=== PATIENT | male | born 1945 | race Caucasian/White ===

== ENCOUNTER → 2017-02-11 | Outpatient (CLI) | payer BC ==
[~2017-02-11] MED LIST: ALEN70TA4 PO; ASPEC325 PO; ASPI81TA28 PO; CALC1CAP36 PO; CMD10 PO; CMD75 PO; DLN100 PO; ENOX80IN SQ; FLV1 PO; FOLATE PO; FSM70 PO; METO50TA7 PO; MULT-506 PO; PHEN1TAB85 PO; PHEN1TAB86 PO; PHEN200C PO
[2017-02-11 12:49] LABS: HEMATOCRIT 41.9 % (42-52); MEAN CELL VOLUME 108.8 fL (80-100); MEAN CORPUSCULAR HEMOGLOBIN 36.6 pg (25-34); MEAN CORPUSCULAR HGB CONC 33.7 g/dl (32-36); MEAN PLATELET VOLUME 11.9 fL (7.4-10.4); PLATELET COUNT 170 K/uL (130-400); RED BLOOD COUNT 3.85 M/uL (4.7-6.1); WHITE BLOOD COUNT 3.63 K/uL (4.8-10.8)
[2017-02-11 13:24] LABS: ALT/SGPT 38 U/L (12-78); BLOOD UREA NITROGEN 21 mg/dl (7-18); CARBON DIOXIDE 29 mmol/L (21-32); CHLORIDE 106 mmol/L (98-107); CHOLESTEROL 144 mg/dl (0-200); CREATININE 0.94 mg/dl (0.60-1.40); GLUCOSE 106 mg/dl (70-99); POTASSIUM 4.3 mmol/L (3.5-5.1); SODIUM 142 mmol/L (136-145)
[2017-02-11 13:27] LABS: ALB/GLOB RATIO 1.4 (0.9-2); ALKALINE PHOSPHATASE 149 U/L (45-117); AST/SGOT 38 U/L (15-37); CHOLESTEROL/HDL RATIO 2.3; HDL CHOLESTEROL 62 mg/dl; LDL CHOLESTEROL CALCULATED 68 mg/dl; TRIGLYCERIDES 72 mg/dl (0-150); VERY LOW DENSITY LIPOPROT CALC 14 mg/dl
== END | disposition home or self-care (01) ==
LOC: C.LABPVFM 10:18
PROVIDERS: ATTEND Family Medicine
DX: E55.9 Vitamin D deficiency, unspecified (principal); M81.0 Age-related osteoporosis without current pathological fracture; E29.1 Testicular hypofunction; N52.9 Male erectile dysfunction, unspecified; Z11.59 Encounter for screening for other viral diseases; I48.0 Paroxysmal atrial fibrillation; Z13.220 Encounter for screening for lipoid disorders

== ENCOUNTER → 2017-02-18 | Outpatient (CLI) | payer BC | END | disposition home or self-care (01) | LOC: C.MAMM 13:23 | PROVIDERS: ATTEND Internal Medicine Endocrinology, Diabetes & Metabolism | DX: E55.9 Vitamin D deficiency, unspecified (principal); M81.0 Age-related osteoporosis without current pathological fracture ==

== ENCOUNTER → 2017-03-06 | Outpatient (CLI) | payer BC ==
[2017-03-06 13:09] LABS: TOTAL IRON BINDING CAPACITY 315 mcg/dl (250-450)
--- NOTE | 2017-03-25 14:06 | CODING QUERY MEDICAL NECESSITY ---
CQSUPPORTING DIAGNOSIS NEEDED A supporting diagnosis is required for the test/procedure performed on this patient in order for us to be reimbursed by the patient's insurance. Please provide a supporting diagnosis for the following test/procedure listed below next to the test name along with your signature. *If there is no additional diagnosis for this patient that would support the following test/procedure please document that below next to the test/procedure. Test(s)/Procedure(s) that require a supporting diagnosis: DOS 03/06/17 VITAMIN B12 TEST Provider Signature: Date: Thank you Diann Aguilera Health Information Management Once completed, please kindly fax back to [phone] For questions please call [phone]
== END | disposition home or self-care (01) ==
LOC: C.LABPVFM 10:16
PROVIDERS: ATTEND Family Medicine
DX: R79.89 Other specified abnormal findings of blood chemistry (principal)

== ENCOUNTER → 2017-03-13 | Outpatient (CLI) | payer BC ==
[2017-03-13 16:09] LABS: CALCIUM 9.8 mg/dl (8.5-10.1)
[2017-03-13 16:24] LABS: THYROID STIMULATING HORMONE 2.59 uIu/ml (0.300-4.500)
== END | disposition home or self-care (01) ==
LOC: C.LAB1850 14:14
PROVIDERS: ATTEND Internal Medicine Endocrinology, Diabetes & Metabolism
DX: E55.9 Vitamin D deficiency, unspecified (principal); M81.0 Age-related osteoporosis without current pathological fracture; E34.9 Endocrine disorder, unspecified; E29.1 Testicular hypofunction

== ENCOUNTER 2017-04-02 12:49 | Inpatient (IN) | payer BC, OTHER ==
[~2017-04-02] VITALS: Ht 175.3 cm; Wt 70.4 kg
[~2017-04-02 12:49] MED LIST changes: -ALEN70TA4 PO; -ASPI81TA28 PO; -CALC1CAP36 PO; -ENOX80IN SQ; -FLV1 PO; -MULT-506 PO; -PHEN200C PO
[2017-04-02 13:02] VITALS: Ht 175.3 cm; Wt 70.4 kg
--- NOTE | 2017-04-02 14:33 | EMERGENCY ROOM VISIT NOTE ---
History First contact with patient: 13:56 Chief Complaint: GI ASSESSMENT Stated Complaint: BLOODY STOOL, SENT BY OFFICE Nursing Triage Summary: triage gabriela: pt reports colonscopy on saturday. pt has had dark colored bm and diarrhea since. History of Present Illness The patient is a 71 year old male who presents to the Emergency Room via private vehicle coming by family with complaints of "bloody stool, sent by doctor's office". The patient states that he had a colonoscopy performed on Saturday by Dr. Arzate. He states that he had 5 or 6 polyps removed. He states that he was doing well up until Saturday, where he felt he had to force his bowel movement and noted blood within the stool. He states that he has had blood in his stool since that time, but most recently there was little blood. He notes the blood is dark red in nature. He states is getting darker and smells very bad. He is currently on Coumadin. He notes that he had a CBC performed earlier today which reveal that his blood counts are dropping. He notes that he called the office and Dr. Arzate recommended he come here. Review of Systems A complete 10-point Review of Systems was discussed with the patient, with pertinent positives and negatives listed in the History of Present Illness. All remaining Review of Systems questions can be considered negative unless otherwise specified. Past Medical/Surgical History Medical Problems: (1) Rectal bleed Family History No pertinent. Social History Smoking Status: Never Smoker Patient lives locally with family. Current/Historical Medications Scheduled Alendronate Sodium (Fosamax), 70 MG PO WK Aspirin (Aspirin Ec), 81 MG PO DAILY Calcitriol (Calcitriol), 1 CAP PO DAILY Enoxaparin (Lovenox), 80 MG SQ Q12H Folic Acid (Folic Acid), 1 TAB PO DAILY Metoprolol Succ (Toprol Xl) (Toprol-Xl), 50 MG PO DAILY Multivitamin (Multivitamin), 1 TAB PO DAILY Phenobarbital (Phenobarbital), 60 MG PO QAM Phenobarbital (Phenobarbital), 30 MG PO DAILY Phenobarbital (Phenobarbital), 60 MG PO QPM Phenytoin Sodium Extended (Phenytek), 100 MG PO QAM Phenytoin Sodium Extended (Phenytek), 200 MG PO DAILY Phenytoin Sodium Extended (Phenytek), 200 MG PO QPM Warfarin Sod (Coumadin), 1 TAB PO 3XWK Warfarin Sod (Coumadin), 1 TAB PO 4XWK Physical Exam Vital Signs Date Time Temp Pulse Resp B/P (MAP) Pulse Ox O2 Delivery O2 Flow Rate FiO2 04/02/17 18:16 69 18 119/65 96 04/02/17 18:00 96 Room Air 04/02/17 16:50 68 18 125/80 98 Room Air 04/02/17 15:13 64 04/02/17 13:02 36.7 81 18 112/73 96 Room Air Physical Exam VITAL SIGNS - Vital signs and nursing notes were reviewed. Stable. GENERAL - 71-year-old male appearing his stated age who is in no acute distress. Communicates well with provider and answers questions appropriately. SKIN - Without rashes. No petechial rashes. HEAD - NC/AT. EYES - PERRL with EOMI bilaterally. Sclera anicteric. Palpebral conjunctiva pink and moist with no injection noted. EARS - No deformities of external structures noted on gross examination bilaterally. NOSE - Midline and without cyanosis. No epistaxis or purulent drainage noted. MOUTH/OROPHARYNX - Without perioral cyanosis. LUNGS - Chest wall symmetric without accessory muscle use, intercostals retractions, or central cyanosis. Normal vesicular breath sounds CTA B/L. No wheezes, rales, or rhonchi appreciated. CARDIAC - RRR with S1/S2. No murmur, rubs, or gallops appreciated. ABDOMEN - Abdominal contour normal without pulsations or visible masses. BS normoactive all four quadrants. No tenderness, palpable masses, hepatosplenomegaly, or ascites noted. RECTAL: After obtaining consent, rectal exam was performed. No external reasons for bleeding. Hemoccult positive. The stool was coffee-ground like and dark brown/black. Medical Decision & Procedures Laboratory Results 04/02/17 14:20 Red Blood Count 3.48, Mean Corpuscular Volume 106.9, Mean Corpuscular Hemoglobin 36.2, Mean Corpuscular Hemoglobin Concent 33.9, Mean Platelet Volume 11.2, Neutrophils (%) (Auto) 68.5, Lymphocytes (%) (Auto) 16.4, Monocytes (%) ( Auto) 11.5, Eosinophils (%) (Auto) 2.0, Basophils (%) (Auto) 1.3, Neutrophils # (Auto) 2.08, Lymphocytes # (Auto) 0.50, Monocytes # (Auto) 0.35, Eosinophils # ( Auto) 0.06, Basophils # (Auto) 0.04 04/02/17 14:20 Test 04/02/17 14:20 White Blood Count 3.04 K/uL (4.8-10.8) Red Blood Count 3.48 M/uL (4.7-6.1) Hemoglobin 12.6 g/dL (14.0-18.0) Hematocrit 37.2 % (42-52) Mean Corpuscular Volume 106.9 fL (80-100) Mean Corpuscular Hemoglobin 36.2 pg (25-34) Mean Corpuscular Hemoglobin Concent 33.9 g/dl (32-36) Platelet Count 155 K/uL (130-400) Mean Platelet Volume 11.2 fL (7.4-10.4) Neutrophils (%) (Auto) 68.5 % Lymphocytes (%) (Auto) 16.4 % Monocytes (%) (Auto) 11.5 % Eosinophils (%) (Auto) 2.0 % Basophils (%) (Auto) 1.3 % Neutrophils # (Auto) 2.08 K/uL (1.4-6.5) Lymphocytes # (Auto) 0.50 K/uL (1.2-3.4) Monocytes # (Auto) 0.35 K/uL (0.11-0.59) Eosinophils # (Auto) 0.06 K/uL (0-0.5) Basophils # (Auto) 0.04 K/uL (0-0.2) RDW Standard Deviation 51.9 fL (36.4-46.3) RDW Coefficient of Variation 13.3 % (11.5-14.5) Immature Granulocyte % (Auto) 0.3 % Immature Granulocyte # (Auto) 0.01 K/uL (0.00-0.02) Prothrombin Time 38.4 SECONDS (9.0-12.0) Prothromb Time International Ratio 3.4 (0.9-1.1) Activated Partial Thromboplast Time 53.6 SECONDS (21.0-31.0) Partial Thromboplastin Ratio 2.1 Anion Gap 7.0 mmol/L (3-11) Est Creatinine Clear Calc Drug Dose 87.2 ml/min Estimated GFR () 105.6 Estimated GFR (Non- 91.1 BUN/Creatinine Ratio 24.7 (10-20) Lactic Acid Level 1.2 mmol/L (0.4-2.0) Calcium Level 8.9 mg/dl (8.5-10.1) Total Bilirubin 0.6 mg/dl (0.2-1) Aspartate Amino Transf (AST/SGOT) 40 U/L (15-37) Alanine Aminotransferase (ALT/SGPT) 42 U/L (12-78) Alkaline Phosphatase 168 U/L (45-117) Total Protein 6.9 gm/dl (6.4-8.2) Albumin 3.8 gm/dl (3.4-5.0) Globulin 3.1 gm/dl (2.5-4.0) Albumin/Globulin Ratio 1.2 (0.9-2) Medical Decision Patient was seen and evaluated as above. He presents to us today with rectal bleeding status post colonoscopy on Saturday. He is also anticoagulated. He was sent here at the recommendation of Dr. Arzate. IV access was initiated, and baseline labs were performed. Call was placed to Dr. Arzate, and we discussed the patient's status. He came to personally evaluate the patient. He recommended watching the patient here overnight in the hospital, have the patient on a clear liquid diet, and hold the Coumadin dose. He recommended evaluating the patient overnight, and if the patient seemed to drop, or he decompensated that he'll be prepped for colonoscopy. I do believe the patient at this time should be brought into the hospital for further evaluation and management. His vital signs are stable upon entry. His hemoglobin is low at 12.6. This has decreased from 14.1 on February 11. INR is 3.4. Metabolic panel does not reveal any emergent liver or kidney process. AST slightly high at 40. Alkaline phosphatase high at 168. I discussed the case with the attending physician, Dr. Estevez Please refer to further valuation and management/ documentation regarding his stay. In evaluation treatment this patient following differential diagnoses were entertained: Pulse bleed status post colonoscopy, hemorrhoid, anal fissure, among others. Impression Primary Impression: Rectal bleed Additional Impression: Anemia Departure Information Dispostion Admitted as an inpatient Condition FAIR Referrals Bree Prado M.D. (PCP) Patient Instructions My [facility] Problem Qualifiers
[2017-04-02] MEDS ORDERED: FLV1 PO (14:49)
[2017-04-02] MEDS ORDERED: CMD75 PO (14:49)
[2017-04-02] MEDS ORDERED: CALC1CAP36 PO (14:49)
[2017-04-02] MEDS ORDERED: ASPI81TA28 PO (14:49)
[2017-04-02] MEDS ORDERED: ENOX80IN SQ (14:49)
[2017-04-02] MEDS ORDERED: ALEN70TA4 PO (14:49)
[2017-04-02] MEDS ORDERED: PHEN200C PO ×3 (14:49)
[2017-04-02] MEDS ORDERED: CMD10 PO (14:49)
[2017-04-02] MEDS ORDERED: MULT-506 PO (14:49)
[2017-04-02 15:08] LABS: BASO % 1.3 %; BASO ABS # 0.04 K/uL (0-0.2); COMPLETE YES; HEMATOCRIT 37.2 % (42-52); IG% 0.3 %; LYMPH % 16.4 %; MEAN CELL VOLUME 106.9 fL (80-100); MEAN CORPUSCULAR HEMOGLOBIN 36.2 pg (25-34); MEAN CORPUSCULAR HGB CONC 33.9 g/dl (32-36); MEAN PLATELET VOLUME 11.2 fL (7.4-10.4); MONO % 11.5 %; NEUT % 68.5 %; PLATELET COUNT 155 K/uL (130-400); RED BLOOD COUNT 3.48 M/uL (4.7-6.1); WHITE BLOOD COUNT 3.04 K/uL (4.8-10.8)
[2017-04-02 15:20] LABS: INR 3.4 (0.9-1.1); PARTIAL THROMBOPLASTIN RATIO 2.1; PROTHROMBIN TIME (PATIENT) 38.4 SECONDS (9.0-12.0)
[2017-04-02 15:21] LABS: BUN/CREATININE RATIO 24.7 (10-20); CALCIUM 8.9 mg/dl (8.5-10.1); CREATININE 0.76 mg/dl (0.60-1.40); POTASSIUM 4.2 mmol/L (3.5-5.1)
[2017-04-02 15:24] LABS: ALB/GLOB RATIO 1.2 (0.9-2)
[2017-04-02] MEDS ORDERED: POLYETHYLENE (MIRALAX) 17 GM PACK PO PRN (17:30)
[2017-04-02] MEDS ORDERED: MAGNESIUM HYDROXIDE SUSP 30 ML UDC PO PRN (17:30)
[2017-04-02] MEDS ORDERED: ONDANSETRON INJ 2 MG/ML 2 ML VIAL IV PRN (17:30)
[2017-04-02] MEDS ORDERED: ALUMINUM/MAGNESIUM/SIMETH (MAALOX MAX) 30 ML UDC PO PRN (17:30)
--- NOTE | 2017-04-02 17:37 | History and Physical ---
History & Physical Date & Time of Service: Apr 02, 2017 at 17:28 Chief Complaint: Bloody Stool, Sent By Dr Office Primary Care Physician: Bree Prado M.D. History of Present Illness Source: patient, clinic records, hospital records Patient is a pleasant 71 y/o male, with PMHx of a.fib, MVR, and seizure disorder , who presented to the ED because of BRBPR since 03/30. Patient had a surveillance colonoscopy by Dr. Arzate on 03/29- multiple polyps were removed. On Saturday, patient noticed bright red blood with bowel movement. He also notes loose stools. He has had 4 episodes since Saturday, his last being today in ED. He notes stool seem darker in color. He is on chronic Coumadin for a.fib/ MVR. Patient denies any fever, chills, sweats, lightheadedness, dizziness, vision changes, CP, palpitations, edema, SOB, wheezing, cough, abdominal pain, nausea, vomiting, diarrhea, urinary symptoms, numbness/tingling, weakness, muscle/joint pain, anxiety/depression, or new skin discoloration/changes. Past Medical/Surgical History Past Medical History: a.fib MVR seizure disorder Surgical History: s/p mitral valve replacement colonoscopy Family History Noncontributory Social History Smoking Status: Never Smoker Smokeless Tobacco Use: No Alcohol Use: none Drug Use: none Marital Status: Housing status: lives with family Immunizations History of Influenza Vaccine: Yes History of Tetanus Vaccine?: Yes History of Pneumococcal: Yes History of Hepatitis B Vaccine: Yes Multi-Drug Resistant Organisms History of MDRO: No Allergies Coded Allergies: No Known Allergies (Verified , 04/02/17) Home Medications Scheduled Alendronate Sodium (Fosamax), 70 MG PO WK Aspirin (Aspirin Ec), 81 MG PO DAILY Calcitriol (Calcitriol), 1 CAP PO DAILY Enoxaparin (Lovenox), 80 MG SQ Q12H Folic Acid (Folic Acid), 1 TAB PO DAILY Metoprolol Succ (Toprol Xl) (Toprol-Xl), 50 MG PO DAILY Multivitamin (Multivitamin), 1 TAB PO DAILY Phenobarbital (Phenobarbital), 60 MG PO QAM Phenobarbital (Phenobarbital), 30 MG PO DAILY Phenobarbital (Phenobarbital), 60 MG PO QPM Phenytoin Sodium Extended (Phenytek), 100 MG PO QAM Phenytoin Sodium Extended (Phenytek), 200 MG PO DAILY Phenytoin Sodium Extended (Phenytek), 200 MG PO QPM Warfarin Sod (Coumadin), 1 TAB PO 3XWK Warfarin Sod (Coumadin), 1 TAB PO 4XWK Physical Exam Vital Signs Date Time Temp Pulse Resp B/P (MAP) Pulse Ox O2 Delivery O2 Flow Rate FiO2 04/02/17 16:50 68 18 125/80 98 Room Air 04/02/17 15:13 64 04/02/17 13:02 36.7 81 18 112/73 96 Room Air General Appearance: no apparent distress Head: normocephalic, atraumatic Eyes: PERRL ENT: hearing grossly normal Neck: supple Respiratory/Chest: lungs clear, no respiratory distress, no accessory muscle use Cardiovascular: regular rate, rhythm, + pertinent finding (valve replacement ) Abdomen/GI: normal bowel sounds, non tender, soft Back: normal inspection Extremities/Musculoskelatal: no calf tenderness, no pedal edema Neurologic/Psych: alert, normal mood/affect, oriented x 3 Skin: normal color, warm/dry, no rash Diagnostics Laboratory Results Results Past 24 Hours Test 04/02/17 14:20 Range/Units White Blood Count 3.04 4.8-10.8 K/uL Red Blood Count 3.48 4.7-6.1 M/uL Hemoglobin 12.6 14.0-18.0 g/dL Hematocrit 37.2 42-52 % Mean Corpuscular Volume 106.9 80-100 fL Mean Corpuscular Hemoglobin 36.2 25-34 pg Mean Corpuscular Hemoglobin Concent 33.9 32-36 g/dl Platelet Count 155 130-400 K/uL Mean Platelet Volume 11.2 7.4-10.4 fL Neutrophils (%) (Auto) 68.5 % Lymphocytes (%) (Auto) 16.4 % Monocytes (%) (Auto) 11.5 % Eosinophils (%) (Auto) 2.0 % Basophils (%) (Auto) 1.3 % Neutrophils # (Auto) 2.08 1.4-6.5 K/uL Lymphocytes # (Auto) 0.50 1.2-3.4 K/uL Monocytes # (Auto) 0.35 0.11-0.59 K/uL Eosinophils # (Auto) 0.06 0-0.5 K/uL Basophils # (Auto) 0.04 0-0.2 K/uL RDW Standard Deviation 51.9 36.4-46.3 fL RDW Coefficient of Variation 13.3 11.5-14.5 % Immature Granulocyte % (Auto) 0.3 % Immature Granulocyte # (Auto) 0.01 0.00-0.02 K/uL Prothrombin Time 38.4 9.0-12.0 SECONDS Prothromb Time International Ratio 3.4 0.9-1.1 Activated Partial Thromboplast Time 53.6 21.0-31.0 SECONDS Partial Thromboplastin Ratio 2.1 Sodium Level 140 136-145 mmol/L Potassium Level 4.2 3.5-5.1 mmol/L Chloride Level 106 98-107 mmol/L Carbon Dioxide Level 27 21-32 mmol/L Anion Gap 7.0 3-11 mmol/L Blood Urea Nitrogen 19 7-18 mg/dl Creatinine 0.76 0.60-1.40 mg/dl Est Creatinine Clear Calc Drug Dose 87.2 ml/min Estimated GFR () 105.6 Estimated GFR (Non- 91.1 BUN/Creatinine Ratio 24.7 10-20 Random Glucose 104 70-99 mg/dl Lactic Acid Level 1.2 0.4-2.0 mmol/L Calcium Level 8.9 8.5-10.1 mg/dl Total Bilirubin 0.6 0.2-1 mg/dl Aspartate Amino Transf (AST/SGOT) 40 15-37 U/L Alanine Aminotransferase (ALT/SGPT) 42 12-78 U/L Alkaline Phosphatase 168 45-117 U/L Total Protein 6.9 6.4-8.2 gm/dl Albumin 3.8 3.4-5.0 gm/dl Globulin 3.1 2.5-4.0 gm/dl Albumin/Globulin Ratio 1.2 0.9-2 Impression Assessment and Plan Patient is a pleasant 71 y/o male, with PMHx of a.fib, MVR, and seizure disorder , who presented to the ED because of BRBPR since 03/30. BPBPR s/p colonoscopy on 03/29: - Admit to med/surg - Follow H&H - Type and screen completed - IVF @100 ml/hr - Hold ASA and Coumadin - Clear liquid diet incase intervention need - Consult GI, appreciate recommendations a.fib, MVR- follows w/ Dr. Hernandez: - Hold Coumadin- follow INR - Continue Metoprolol 50 mg daily Seizure disorder- follows w/ Dr. Delatorre: Continue Phenobarbital, Phenytoin, folic acid GI prophylaxis: Protonix DVT prophylaxis: TEDs/SCDs; chemical means contraindicated due to rectal bleeding Code Status: LEVEL I, FULL Dispo: From home, lives w/ - no discharge needs anticipated Attending Addendum: I have physically seen and examined this patient, have directed the physician assistants medical activities, and agree with the H&P as noted above with the following exceptions as noted. The patient is awake, alert and oriented 3, well-developed and well-nourished , normocephalic and atraumatic, lying in bed and in no acute distress. HEENT--PERRL, EOMI, mucous membranes and oropharynx dry. Neck--supple, no JVD or bruits, thyroid normal, trachea midline, no adenopathy. Heart--normal S1 and S2, valvular click. no murmurs, rubs or gallops. Lungs--clear bilaterally with good air movement, no respiratory distress, no accessory muscle use. Abdomen--normal bowel sounds and soft, nontender and nondistended, no hernias or masses, no organomegaly. Extremities--no cyanosis, clubbing or edema. There are good distal pulses b/l. Dermatologic--normal skin turgor, normal color, warm and dry, no abnormal lymph nodes, no rash. Neurologic--cranial nerves II through XII grossly intact. Rheumatologic--normal range of motion, nontender, muscles and joints. Psychiatric--normal affect. Assessment and Plan: Right red blood per rectum/status post colonoscopy on 03/29-- Follow serial H&H. NSS at 100 ML's per hour. Hold aspirin and Coumadin Clear liquid diet Consult GI A. fib/MVR-- Old Coumadin Continue metoprolol with hold parameters. Level of Care Med/Surg Advanced Directives Existing Advance Directive: No Existing Living Will: No Existing Power of Bulk Pigment Reducer: No Resuscitation Status FULL RESUSCITATION VTE Prophylaxis VTE Risk Assessment Done? Y/N: Yes Risk Level: Moderate Given or contraindicated: T.E.D. Stockings, SCD's, Contraindicated Social Service Consult None Apply
[2017-04-02 18:00] VITALS: BP 121/79; PULSE 103; TEMP 36.5; O2SAT 96
[2017-04-02 18:16] VITALS: O2SAT 96
[2017-04-02] MEDS ORDERED: IV FLUIDS COMPLETED PRN (18:45)
--- NOTE | 2017-04-02 19:19 | GASTROINTESTINAL CONSULTATION ---
DATE OF CONSULTATION: 04/02/2017 REQUESTING PROVIDER: ER physician staff. CHIEF COMPLAINT: Maroon stools following colonoscopy with polypectomy last Saturday. HISTORY OF PRESENT ILLNESS: Mr. Polk is a 71-year-old male known to me from her recent colonoscopy on Saturday for which several polyps were removed in the proximal colon by hot and cold snare technique. The patient did well Saturday night; however, on Saturday began to develop symptoms of loose stools that were burgundy or maroon colored. These were loose and occurred a couple times on Saturday. This recurred on Saturday, although perhaps the color began to darken slightly. The patient is on anticoagulation because of atrial fibrillation, although he also has a mitral valve replacement that is of human bioprosthesis. He did have a stroke, although anticoagulation preceded the stroke history. The patient had no abdominal pain, fevers or chills with this and again today, the patient had much darker appearing stools that had been on Saturday, Saturday and part of Saturday. The patient was directed to outpatient lab draw at [facility] and was found to have hemoglobin of 12.8, hematocrit 37.9, MCV of 107, white count 3.2, platelets 181. When comparing these to 02/11/2017 labs in the [facility]'s record, the patient had hemoglobin of 14.1 and 170,000 platelets. The patient was directed to the Emergency Room for further evaluation. PAST MEDICAL AND SURGICAL HISTORY: Includes those mentioned above and includes atrial fibrillation, prosthetic valve replacement, and CVA. The patient does not report any other surgeries. SOCIAL HISTORY: The patient denies tobacco or alcohol use. HOME MEDICATIONS: Include alendronate, aspirin, metoprolol, phenobarbital, Dilantin, warfarin, and folic acid. ALLERGIES: The patient has used alcohol in the past, however. FAMILY HISTORY: Noncontributory. REVIEW OF SYSTEMS: Otherwise noncontributory. Based on 13-point exam except for mentioned above, the patient denies dysuria, hematuria, hematemesis, coffee-ground emesis, melena. The patient denies any prior history of peptic ulcer disease, use of nonsteroidal agents. PHYSICAL EXAMINATION: VITAL SIGNS: In the Emergency Room show as follows blood pressure 112/73, heart rate is 81, respirations 18, temperature 36.7, and 96% on room air. Repeat blood pressure this afternoon showed blood pressure 125/80, respirations 18, heart rate 68, and 98% on room air. GENERAL: The patient is accompanied by his family. The patient is awake, alert and oriented x3. HEENT: Sclerae are anicteric, conjunctiva moist. Oral mucosa moist. HEART: Normal S1, S2 with a systolic ejection murmur. LUNGS: Clear to auscultation without rales, rhonchi or wheezes. ABDOMEN: Soft, flat, nontender, nondistended. No rebound or guarding. I do not appreciate abdominal masses, bruits, slight evidence of ascites by way of tense abdomen shifting dullness. There is no hepatosplenomegaly. There are positive bowel sounds. EXTREMITIES: Without clubbing, cyanosis or edema. RECTAL: Deferred. LABORATORY STUDIES: Since admission are as follows: White count was 3, hemoglobin is 12.6 and stable from this morning's outpatient lab and platelet count 155. Serum chemistry: Potassium 4.2, BUN and creatinine are 19 and 0.7, lactate 1.2, AST is 40, ALT 42, alkaline phosphatase 168, total bilirubin 0.6. Calcium is normal. INR is elevated at 3.4 and PTT of 53.6. The patient was on Lovenox up until last evening for the bridging protocol and has been on Coumadin since Saturday night. ASSESSMENT AND PLAN: Given the stability of the patient's hemoglobin currently, as well as stability of his vital signs, I believe it is prudent to admit the patient for observation and follow hemoglobin serially. I would hold the Coumadin tonight as the patient reports that his therapeutic level is generally kept between 2.5 and 3 and hopefully with allowing this to trend down closer to the 2.5 level, we may eliminate the need for colonoscopy. If, however, the patient develops increase in bleeding intensity or color that suggests ongoing bleeding or if his hemoglobin is dropping, then we may need to consider a bowel preparation and colonoscopy to assess the polypectomy sites. I would type and screen the patient. PPI is reasonable. I would not need to necessarily reverse his level of anticoagulation almost bleeding seems to be persisting. As of this morning, he feels that his stool color has become more coffee ground and darker in appearance that may reflect a mostly older blood given the stability of his hemoglobin. All questions answered. We will follow along with you. If you have any questions, please contact the GI service. Thank you for allowing us to participate in this patient's care.
[2017-04-02] MEDS ORDERED: SODIUM CHLORIDE 0.9% 1000ML 1,000 ML IV ONE (20:00)
[2017-04-02] MEDS: PHENYTOIN SODIUM ER 100 MG CAP PO SCH (20:47)
[2017-04-02] MEDS: PHENOBARBITAL 32.4 MG TAB PO SCH (20:49)
[2017-04-02] MEDS: ACETAMINOPHEN 325 MG TAB PO PRN (20:54)
[2017-04-03 00:52] VITALS: BP 116/78; PULSE 64; TEMP 36.7; O2SAT 95
[2017-04-03 02:45] LABS: HEMATOCRIT 32.5 % (42-52)
[2017-04-03 02:56] LABS: INR 3.1 (0.9-1.1); PROTHROMBIN TIME (PATIENT) 34.5 SECONDS (9.0-12.0)
[2017-04-03 03:10] LABS: CALCIUM 7.9 mg/dl (8.5-10.1); CREATININE 0.64 mg/dl (0.60-1.40); POTASSIUM 3.7 mmol/L (3.5-5.1)
[2017-04-03 06:29] LABS: HEMATOCRIT 32.1 % (42-52)
[2017-04-03 07:08] VITALS: BP 108/64; PULSE 70; TEMP 37; O2SAT 91
[2017-04-03] MEDS: PANTOprazole SOD 40 MG TAB PO SCH (08:10)
[2017-04-03] MEDS: CALCITRIOL 0.25 MCG CAP PO SCH (08:10)
[2017-04-03] MEDS: METOPROLOL SUCC 50MG EXT REL TAB PO SCH (08:10)
[2017-04-03] MEDS: MULTIVITAMIN TAB PO SCH (08:10)
[2017-04-03] MEDS: PHENYTOIN SODIUM ER 100 MG CAP PO SCH ×3 (08:11→21:21)
[2017-04-03] MEDS: PHENOBARBITAL 32.4 MG TAB PO SCH ×3 (08:16→21:22)
--- NOTE | 2017-04-03 11:58 | Gastroenterology Progress Note ---
Progress Note Date of Service: Apr 03, 2017 Subjective Pt evaluation today including: conversation w/ patient, physical exam, chart review, lab review, review of studies, review of inpatient medication list CC f/u GI bleeding HPI Pt states had stool in ER and again just recently. He states one in ER was clearing and this most recent one more red in it. No abd pain. Review of Systems Respiratory: No shortness of breath Cardiac: No chest pain Medications Current Inpatient Medications Medications (Trade) Dose Ordered Sig/Emily Route Start Time Stop Time Status Last Admin Dose Admin Acetaminophen (Tylenol Tab) 650 mg Q4H PRN PO 04/02/17 17:30 05/02/17 17:29 04/02/17 20:54 650 MG Al Hydrox/Mg Hydrox/Simethicone (Maalox Max Susp) 15 ml Q4H PRN PO 04/02/17 17:30 05/02/17 17:29 Magnesium Hydroxide (Milk Of Magnesia Susp) 30 ml Q6H PRN PO 04/02/17 17:30 05/02/17 17:29 Polyethylene (Miralax Powder Packet) 17 gm DAILY PRN PO 04/02/17 17:30 05/02/17 17:29 Ondansetron HCl (Zofran Inj) 4 mg Q6H PRN IV 04/02/17 17:30 05/02/17 17:29 Alendronate Sodium (Fosamax Tab) 70 mg Rodriguez@0700 PO 04/07/17 07:00 05/07/17 06:59 Calcitriol (Rocaltrol Cap) 0.25 mcg DAILY PO 04/03/17 09:00 05/03/17 08:59 04/03/17 08:10 0.25 MCG Folic Acid (Folvite Tab) 1 mg DAILY PO 04/03/17 09:00 05/03/17 08:59 04/03/17 08:10 1 MG Metoprolol Succinate (Toprol Xl Tab) 50 mg DAILY PO 04/03/17 09:00 05/03/17 08:59 04/03/17 08:10 50 MG Multivitamins (Multivitamin Tab) 1 tab DAILY PO 04/03/17 09:00 05/03/17 08:59 04/03/17 08:10 1 TAB Phenobarbital (Phenobarbital Tab) 32.4 mg DAILY@1700 PO 04/03/17 17:00 05/03/17 16:59 Phenobarbital (Phenobarbital Tab) 64.8 mg QAM PO 04/03/17 09:00 05/03/17 08:59 04/03/17 08:16 64.8 MG Phenobarbital (Phenobarbital Tab) 64.8 mg QPM PO 04/02/17 21:00 05/02/17 20:59 04/02/17 20:49 64.8 MG Phenytoin Sodium (Dilantin Er Cap) 100 mg QAM PO 04/03/17 09:00 05/03/17 08:59 04/03/17 08:11 100 MG Phenytoin Sodium (Dilantin Er Cap) 200 mg DAILY@1700 PO 04/03/17 17:00 05/03/17 16:59 Phenytoin Sodium (Dilantin Er Cap) 200 mg QPM PO 04/02/17 21:00 05/02/17 20:59 04/02/17 20:47 200 MG Pantoprazole Sodium (Protonix Tab) 40 mg QAM PO 04/03/17 09:00 05/03/17 08:59 04/03/17 08:10 40 MG Miscellaneous (Iv Fluids Completed) 1 ea PRN PRN N/A 04/02/17 18:45 04/02/18 18:44 04/03/17 05:14 1 EA Objective Vital Signs Date Time Temp Pulse Resp B/P (MAP) Pulse Ox O2 Delivery O2 Flow Rate FiO2 04/03/17 08:00 Room Air 04/03/17 07:08 37.0 70 18 108/64 (79) 91 Room Air 04/03/17 01:45 Room Air 04/03/17 00:52 36.7 64 18 116/78 (91) 95 Room Air 04/02/17 18:16 69 18 119/65 96 04/02/17 18:00 36.5 103 18 121/79 96 Room Air 04/02/17 16:50 68 18 125/80 98 Room Air 04/02/17 15:13 64 04/02/17 13:02 36.7 81 18 112/73 96 Room Air Physical Exam General Appearance: WD/WN, no apparent distress Respiratory/Chest: lungs clear, no respiratory distress Cardiovascular: no murmur Abdomen: normal bowel sounds, non tender, soft, no organomegaly Neurologic/Psych: normal mood/affect, oriented x 3 Laboratory Results Last 24 Hours Test 04/02/17 14:20 04/02/17 19:58 04/03/17 02:22 04/03/17 06:03 White Blood Count 3.04 K/uL Red Blood Count 3.48 M/uL Hemoglobin 12.6 g/dL 12.1 g/dL 10.9 g/dL 11.2 g/dL Hematocrit 37.2 % 36.0 % 32.5 % 32.1 % Mean Corpuscular Volume 106.9 fL Mean Corpuscular Hemoglobin 36.2 pg Mean Corpuscular Hemoglobin Concent 33.9 g/dl Platelet Count 155 K/uL Mean Platelet Volume 11.2 fL Neutrophils (%) (Auto) 68.5 % Lymphocytes (%) (Auto) 16.4 % Monocytes (%) (Auto) 11.5 % Eosinophils (%) (Auto) 2.0 % Basophils (%) (Auto) 1.3 % Neutrophils # (Auto) 2.08 K/uL Lymphocytes # (Auto) 0.50 K/uL Monocytes # (Auto) 0.35 K/uL Eosinophils # (Auto) 0.06 K/uL Basophils # (Auto) 0.04 K/uL RDW Standard Deviation 51.9 fL RDW Coefficient of Variation 13.3 % Immature Granulocyte % (Auto) 0.3 % Immature Granulocyte # (Auto) 0.01 K/uL Prothrombin Time 38.4 SECONDS 34.5 SECONDS Prothromb Time International Ratio 3.4 3.1 Activated Partial Thromboplast Time 53.6 SECONDS Partial Thromboplastin Ratio 2.1 Sodium Level 140 mmol/L 141 mmol/L Potassium Level 4.2 mmol/L 3.7 mmol/L Chloride Level 106 mmol/L 106 mmol/L Carbon Dioxide Level 27 mmol/L 29 mmol/L Anion Gap 7.0 mmol/L 6.0 mmol/L Blood Urea Nitrogen 19 mg/dl 17 mg/dl Creatinine 0.76 mg/dl 0.64 mg/dl Est Creatinine Clear Calc Drug Dose 87.2 ml/min 103.6 ml/min Estimated GFR () 105.6 113.4 Estimated GFR (Non- 91.1 97.8 BUN/Creatinine Ratio 24.7 27.0 Random Glucose 104 mg/dl 85 mg/dl Lactic Acid Level 1.2 mmol/L Calcium Level 8.9 mg/dl 7.9 mg/dl Total Bilirubin 0.6 mg/dl Aspartate Amino Transf (AST/SGOT) 40 U/L Alanine Aminotransferase (ALT/SGPT) 42 U/L Alkaline Phosphatase 168 U/L Total Protein 6.9 gm/dl Albumin 3.8 gm/dl Globulin 3.1 gm/dl Albumin/Globulin Ratio 1.2 Hepatitis C Antibody Screen NEG Assessment and Plan GI bleeding--suspect post polypectomy bleeding--because of H and H drop and possible recurrent bleeding discussed with patient doing bowel prep today with possible colonoscopy tomorrow depending on whether there is further bleeding after prep. Hold coumadin for now acute blood loss anemia--follow H and H and transfuse prn anticoagulation--hold coumadin colon polyps s/p outpt polypectomy.
[2017-04-03] MEDS ORDERED: LAVAGE SOLUTION 4000ML PO SCH (15:00)
[2017-04-03 15:09] VITALS: BP 135/75; PULSE 69; TEMP 36.7; O2SAT 94
[2017-04-03 15:30] LABS: HEMATOCRIT 33.8 % (42-52); MEAN CELL VOLUME 107.3 fL (80-100); MEAN CORPUSCULAR HEMOGLOBIN 34.6 pg (25-34); MEAN CORPUSCULAR HGB CONC 32.2 g/dl (32-36); MEAN PLATELET VOLUME 10.7 fL (7.4-10.4); PLATELET COUNT 158 K/uL (130-400); RED BLOOD COUNT 3.15 M/uL (4.7-6.1); WHITE BLOOD COUNT 2.81 K/uL (4.8-10.8)
[2017-04-03] MEDS ORDERED: LORAZEPAM INJ 0.5 MG in SYRINGE 0.25 ML IV PRN (21:30)
[2017-04-03 21:36] LABS: BASO % 0.8 %; BASO ABS # 0.03 K/uL (0-0.2); EOS % 0.8 %; HEMATOCRIT 36.6 % (42-52); IG% 0.3 %; LYMPH % 17.9 %; LYMPH ABS # 0.65 K/uL (1.2-3.4); MEAN CELL VOLUME 107.3 fL (80-100); MEAN CORPUSCULAR HEMOGLOBIN 35.5 pg (25-34); MEAN PLATELET VOLUME 11.1 fL (7.4-10.4); MONO % 9.9 %; NEUT % 70.3 %; PLATELET COUNT 174 K/uL (130-400); RED BLOOD COUNT 3.41 M/uL (4.7-6.1); WHITE BLOOD COUNT 3.63 K/uL (4.8-10.8)
[2017-04-03 21:38] LABS: COMPLETE YES; MEAN CORPUSCULAR HGB CONC 33.1 g/dl (32-36)
[2017-04-03] MEDS ORDERED: LORAZEPAM 2 MG/ML 1 ML VIAL IV PRN (21:45)
--- NOTE | 2017-04-03 21:47 | Progress Note ---
Progress Note Date of Service Apr 03, 2017. Progress Note RESIDENT NIGHT COVERAGE Attended rudolph giles called around 9:07 PM RN reported the pt was on the phone with his , had been anxious for colonoscopy, NPO, was due for nighttime seizure meds. After he hung up, the called the RN to say she thought her had a seizure. Rudolph giles was called. On arrival, ICU team was also present. No evidence of active seizures or airway compromise. Was present during ICU providers exam and there were no gross focal neurological abnormalities. The pt woke up and was speaking coherently. Labs were obtained - stat CBC and CMP. We will transfer the pt to Telemetry. 0.5mg Ativan IV PRN anxiety / further seizures. 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
[2017-04-03 22:00] LABS: BUN/CREATININE RATIO 14.6 (10-20); CALCIUM 8.5 mg/dl (8.5-10.1); CREATININE 0.83 mg/dl (0.60-1.40); POTASSIUM 3.6 mmol/L (3.5-5.1)
[2017-04-03 22:02] LABS: ALB/GLOB RATIO 1.5 (0.9-2)
[2017-04-03] MEDS: ACETAMINOPHEN 325 MG TAB PO PRN (23:25)
[2017-04-04] VITALS (11 sets, daily range): BP systolic 110–147; BP diastolic 68–84; PULSE 67–111; TEMP 36.1–36.9; O2SAT 88–97
--- NOTE | 2017-04-04 06:19 | Progress Note ---
Subjective Date of Service: Apr 03, 2017. Subjective Pt evaluation today including: conversation w/ patient, conversation w/ family , physical exam 71 yo male who is pleasant is here for an episode of BRBPR. Patient reports that he lost weight over the course of past 3 years, but he reports that it has been unintentional for the past 6 months in which he lost about 15 pounds. Patient at this time (04-03-17 at 15:00), no abdominal pain, a bowel movement with small amount of blod. He is currently getting prep for a colonoscopy tomorrow. Problem List Medical Problems: (1) Anemia Status: Acute Review of Systems Constitutional: + weight loss, No fever, No chills Respiratory: No cough, No sputum Cardiac: No chest pain, No orthopnea Abdomen: No pain, No nausea Musculoskeletal: No joint pain Neurologic: No memory loss, No paralysis Heme: No abnormal bleeding/bruising Endo: No fatigue All Other Systems: Reviewed and Negative Medications Current Inpatient Medications Medications (Trade) Dose Ordered Sig/Emily Route Start Time Stop Time Status Last Admin Dose Admin Acetaminophen (Tylenol Tab) 650 mg Q4H PRN PO 04/02/17 17:30 05/02/17 17:29 04/03/17 23:25 650 MG Al Hydrox/Mg Hydrox/Simethicone (Maalox Max Susp) 15 ml Q4H PRN PO 04/02/17 17:30 05/02/17 17:29 Magnesium Hydroxide (Milk Of Magnesia Susp) 30 ml Q6H PRN PO 04/02/17 17:30 05/02/17 17:29 Polyethylene (Miralax Powder Packet) 17 gm DAILY PRN PO 04/02/17 17:30 05/02/17 17:29 Ondansetron HCl (Zofran Inj) 4 mg Q6H PRN IV 04/02/17 17:30 05/02/17 17:29 Alendronate Sodium (Fosamax Tab) 70 mg Rodriguez@0700 PO 04/07/17 07:00 05/07/17 06:59 Calcitriol (Rocaltrol Cap) 0.25 mcg DAILY PO 04/03/17 09:00 05/03/17 08:59 04/03/17 08:10 0.25 MCG Folic Acid (Folvite Tab) 1 mg DAILY PO 04/03/17 09:00 05/03/17 08:59 04/03/17 08:10 1 MG Metoprolol Succinate (Toprol Xl Tab) 50 mg DAILY PO 04/03/17 09:00 05/03/17 08:59 04/03/17 08:10 50 MG Multivitamins (Multivitamin Tab) 1 tab DAILY PO 04/03/17 09:00 05/03/17 08:59 04/03/17 08:10 1 TAB Phenobarbital (Phenobarbital Tab) 32.4 mg DAILY@1700 PO 04/03/17 17:00 05/03/17 16:59 04/03/17 17:18 32.4 MG Phenobarbital (Phenobarbital Tab) 64.8 mg QAM PO 04/03/17 09:00 05/03/17 08:59 04/03/17 08:16 64.8 MG Phenobarbital (Phenobarbital Tab) 64.8 mg QPM PO 04/02/17 21:00 05/02/17 20:59 04/03/17 21:22 64.8 MG Phenytoin Sodium (Dilantin Er Cap) 100 mg QAM PO 04/03/17 09:00 05/03/17 08:59 04/03/17 08:11 100 MG Phenytoin Sodium (Dilantin Er Cap) 200 mg DAILY@1700 PO 04/03/17 17:00 05/03/17 16:59 04/03/17 17:19 200 MG Phenytoin Sodium (Dilantin Er Cap) 200 mg QPM PO 04/02/17 21:00 05/02/17 20:59 04/03/17 21:21 200 MG Pantoprazole Sodium (Protonix Tab) 40 mg QAM PO 04/03/17 09:00 05/03/17 08:59 04/03/17 08:10 40 MG Miscellaneous (Iv Fluids Completed) 1 ea PRN PRN N/A 04/02/17 18:45 04/02/18 18:44 04/03/17 05:14 1 EA Polyethylene Glycol/ Electrolytes (Golytely Soln) 16 dose TODAY@1500 PO 04/03/17 15:00 05/03/17 14:59 04/03/17 15:34 16 DOSE Lorazepam 0.5 mg/ Syringe 0.5 ml @ 0.5 mls/min Q2H PRN IV 04/03/17 21:30 05/03/17 21:29 04/03/17 21:38 0.5 MLS/MIN Lorazepam (Ativan Inj) 0.5 mg Q2H PRN IV 04/03/17 21:45 05/03/17 21:44 Objective Vital Signs Date Time Temp Pulse Resp B/P (MAP) Pulse Ox O2 Delivery O2 Flow Rate FiO2 04/04/17 04:37 36.9 77 16 114/68 (83) 91 Room Air 04/04/17 04:00 Room Air 04/04/17 00:50 36.9 92 16 147/84 (105) 94 Room Air 04/04/17 00:49 36.6 111 20 96 Room Air 04/04/17 00:14 36.8 91 19 115/79 (91) 95 Room Air 04/04/17 00:00 Room Air 04/03/17 22:13 Nasal Cannula 2.0 04/03/17 16:00 Room Air 04/03/17 15:09 36.7 69 18 135/75 (95) 94 Room Air 04/03/17 08:00 Room Air 04/03/17 07:08 37.0 70 18 108/64 (79) 91 Room Air Physical Exam General Appearance: WD/WN, no apparent distress ENT: normal ENT inspection Neck: supple, no adenopathy Respiratory/Chest: chest non-tender, lungs clear, normal breath sounds Cardiovascular: regular rate, rhythm, no edema Abdomen: normal bowel sounds, non tender, soft Extremities: normal range of motion Laboratory Results Last 24 Hours Test 04/03/17 15:12 04/03/17 21:13 04/03/17 21:22 04/04/17 05:46 White Blood Count 2.81 K/uL 3.63 K/uL Red Blood Count 3.15 M/uL 3.41 M/uL Hemoglobin 10.9 g/dL 12.1 g/dL Hematocrit 33.8 % 36.6 % Mean Corpuscular Volume 107.3 fL 107.3 fL Mean Corpuscular Hemoglobin 34.6 pg 35.5 pg Mean Corpuscular Hemoglobin Concent 32.2 g/dl 33.1 g/dl RDW Standard Deviation 52.5 fL 52.4 fL RDW Coefficient of Variation 13.4 % 13.3 % Platelet Count 158 K/uL 174 K/uL Mean Platelet Volume 10.7 fL 11.1 fL Bedside Glucose 128 mg/dl Neutrophils (%) (Auto) 70.3 % Lymphocytes (%) (Auto) 17.9 % Monocytes (%) (Auto) 9.9 % Eosinophils (%) (Auto) 0.8 % Basophils (%) (Auto) 0.8 % Neutrophils # (Auto) 2.55 K/uL Lymphocytes # (Auto) 0.65 K/uL Monocytes # (Auto) 0.36 K/uL Eosinophils # (Auto) 0.03 K/uL Basophils # (Auto) 0.03 K/uL Immature Granulocyte % (Auto) 0.3 % Immature Granulocyte # (Auto) 0.01 K/uL Sodium Level 135 mmol/L Potassium Level 3.6 mmol/L Chloride Level 100 mmol/L Carbon Dioxide Level 24 mmol/L Anion Gap 11.0 mmol/L Blood Urea Nitrogen 12 mg/dl Creatinine 0.83 mg/dl Est Creatinine Clear Calc Drug Dose 79.9 ml/min Estimated GFR () 101.9 Estimated GFR (Non- 87.9 BUN/Creatinine Ratio 14.6 Random Glucose 136 mg/dl Calcium Level 8.5 mg/dl Total Bilirubin 0.7 mg/dl Aspartate Amino Transf (AST/SGOT) 41 U/L Alanine Aminotransferase (ALT/SGPT) 38 U/L Alkaline Phosphatase 160 U/L Total Protein 6.7 gm/dl Albumin 4.0 gm/dl Globulin 2.7 gm/dl Albumin/Globulin Ratio 1.5 Assessment and Plan Patient is a pleasant 71 y/o male, with PMHx of a.fib, MVR, and seizure disorder , who presented to the ED because of BRBPR since 03/30. BPBPR s/p colonoscopy on 03/29: -Scedhuled for colonscopy tomorrow AM, currently getting prep. - Follow H&H - Type and screen completed - IVF @100 ml/hr - Hold ASA and Coumadin - a.fib, MVR- follows w/ Dr. Hernandez: - Hold Coumadin- follow INR - Continue Metoprolol 50 mg daily Seizure disorder- follows w/ Dr. Delatorre: Continue Phenobarbital, Phenytoin, folic acid GI prophylaxis: Protonix DVT prophylaxis: TEDs/SCDs; chemical means contraindicated due to rectal bleeding Code Status: LEVEL I, FULL Dispo: From home, lives w/ - no discharge needs anticipated Continued [facility] stay due to: other (awaiting colonscopy tomorrow) Discharge planning: home
[2017-04-04 06:46] LABS: BASO % 0.6 %; BASO ABS # 0.02 K/uL (0-0.2); COMPLETE YES; EOS % 0.9 %; HEMATOCRIT 32.8 % (42-52); IG% 0.3 %; LYMPH % 13.7 %; LYMPH ABS # 0.48 K/uL (1.2-3.4); MEAN CELL VOLUME 105.8 fL (80-100); MEAN CORPUSCULAR HEMOGLOBIN 36.1 pg (25-34); MEAN CORPUSCULAR HGB CONC 34.1 g/dl (32-36); MONO % 14.5 %; PLATELET COUNT 157 K/uL (130-400); WHITE BLOOD COUNT 3.51 K/uL (4.8-10.8)
[2017-04-04 06:52] LABS: INR 3.3 (0.9-1.1); PROTHROMBIN TIME (PATIENT) 37.4 SECONDS (9.0-12.0)
[2017-04-04 07:18] LABS: BUN/CREATININE RATIO 13.8 (10-20); CALCIUM 8.2 mg/dl (8.5-10.1); CREATININE 0.73 mg/dl (0.60-1.40)
[2017-04-04] MEDS: PHENOBARBITAL 32.4 MG TAB PO SCH ×3 (10:44→22:19)
[2017-04-04] MEDS: CALCITRIOL 0.25 MCG CAP PO SCH (10:46)
[2017-04-04] MEDS: PHENYTOIN SODIUM ER 100 MG CAP PO SCH ×3 (10:46→22:20)
[2017-04-04] MEDS: METOPROLOL SUCC 50MG EXT REL TAB PO SCH (10:47)
[2017-04-04] MEDS: MULTIVITAMIN TAB PO SCH (10:48)
[2017-04-04] MEDS: PANTOprazole SOD 40 MG TAB PO SCH (10:49)
--- NOTE | 2017-04-04 13:55 | Endo History and Physical ---
History & Physical Date of Service: Apr 04, 2017. Chief Complaint: CC f./u GI bleeding Referring Physician: History of Present Illness with patient for H and P. For some reason patient given only 1/2 gallon of prep last night and told not to take anymore. Reports of prep from nurse who got report and patient and are highly variable. Pt not having any abd pain. Pt stated last BM was brown and was last night. Past Medical History Atrial Fibrillation, Diabetes, Osteoporosis, ASHD, Seizure Disorder, Heart Disease, Valve Replacement, CVA/TIA Past Surgical History Hx Cardiac Surgery: Yes (open heart surgery, mitral valve replaced) Hx Internal Defibrillator: No Hx Pacemaker: No Hx Abdominal Surgery: No Hx Post-Op Nausea and Vomiting: No Hx Cancer Surgery: No Hx Thoracic Surgery: Yes Hx Orthopedic: Yes (right rotator Cuff Repair) Hx Urinary Tract Surgery: No Social History Smoking Status: Former Smoker Smokeless Tobacco Use: No Hx Substance Use: No Hx Alcohol Use: Yes Allergies Coded Allergies: No Known Allergies (Verified , 04/02/17) Current Medications Reported Home Medications Medications Dose Route/Sig Max Daily Dose Days Date Category Dose Instructions Multivitamin (Multivitamins) Tab 1 Tab PO DAILY 04/02/17 Reported Calcitriol 0.25 Mcg Cap 1 Cap PO DAILY 04/02/17 Reported Lovenox (Enoxaparin Sodium) 80 Mg/0.8 Ml Inj 80 Mg SQ Q12H 04/02/17 Reported Folic Acid 1 Mg Tab 1 Tab PO DAILY 04/02/17 Reported Aspirin Ec (Aspirin) 81 Mg Tab 81 Mg PO DAILY 04/02/17 Reported Phenytek (Phenytoin Sodium Extended) 200 Mg Cap 200 Mg PO QPM 04/02/17 Reported Phenytek (Phenytoin Sodium Extended) 200 Mg Cap 200 Mg PO DAILY 04/02/17 Reported Fosamax (Alendronate Sodium) 70 Mg Tab 70 Mg PO WK 04/02/17 Reported SATURDAY Coumadin (Warfarin Sod) 7.5 Mg Tab 1 Tab PO 4XWK 04/02/17 Reported SUN. TUES. THUR. SAT. Coumadin (Warfarin Sod) 10 Mg Tab 1 Tab PO 3XWK 04/02/17 Reported MON. WED. FRI. Phenytek (Phenytoin Sodium Extended) 200 Mg Cap 100 Mg PO QAM 04/02/17 Reported Phenobarbital 60 Mg Tab 60 Mg PO QPM 10/24/08 Reported Phenobarbital 30 Mg Tab 30 Mg PO DAILY 10/24/08 Reported Phenobarbital 60 Mg Tab 60 Mg PO QAM 10/24/08 Reported Toprol-Xl (Metoprolol Succinate) 50 Mg Tabcr 50 Mg PO DAILY 10/24/08 Reported Vital Signs Weight (Kilograms): 70.400 Height (Feet): 5 Height (Inches): 9.00 Date Time Temp Pulse Resp B/P (MAP) Pulse Ox O2 Delivery O2 Flow Rate FiO2 04/04/17 12:00 Room Air 04/04/17 11:12 36.7 81 18 110/72 (85) 94 Room Air 04/04/17 10:15 Room Air 04/04/17 08:00 Nasal Cannula 2.0 04/04/17 07:29 36.5 71 18 132/84 (100) 96 Nasal Cannula 04/04/17 04:37 36.9 77 16 114/68 (83) 91 Room Air 04/04/17 04:00 Room Air 04/04/17 00:50 36.9 92 16 147/84 (105) 94 Room Air 04/04/17 00:49 36.6 111 20 96 Room Air 04/04/17 00:14 36.8 91 19 115/79 (91) 95 Room Air 04/04/17 00:00 Room Air 04/03/17 22:13 Nasal Cannula 2.0 04/03/17 16:00 Room Air 04/03/17 15:09 36.7 69 18 135/75 (95) 94 Room Air Physical Exam General Appearance: WD/WN, no apparent distress Respiratory/Chest: Respiratory effort: no dyspnea Auscultation: CTA except as noted Cardiovascular: Apical Impulse: not displaced Heart Auscultation: no murmurs Abdomen: Bowel Sounds: normal Inspection & Palpation: soft, non-distended, no tenderness, guarding & rebound, no masses rectal exam with nurse present--liquids light red material noted. No particulate matter. Assessment and Plan ` A/P GI bleeding-- probable post polypectomy bleed--because stool is liquid and red proceed with colonoscopy today. Even thought did not get full prep the blood in colon is good laxative. blood loss anemia--Hgb stable coagulopathy--INR 3.3 today.
[2017-04-04] MEDS ORDERED: PROPOFOL IV EMULSION 10 MG/ML 20 ML VIAL IV ONE ×2 (14:35→15:50)
[2017-04-04] MEDS ORDERED: LIDOCAINE HCL 2% 2 ML VIAL (20MG/ML) ONE (14:35)
[2017-04-04] MEDS ORDERED: ONDANSETRON INJ 2 MG/ML 2 ML VIAL ONE (15:59)
--- NOTE | 2017-04-04 16:47 | GI REPORT ---
Procedure Date: 04/04/2017 2:22 PM Procedure: Colonoscopy Indications: Treatment of bleeding from polypectomy site Medicines: Propofol per Anesthesia Complications: No immediate complications. Estimated blood loss: None. Estimated Blood Loss: Estimated blood loss: none. Procedure: Pre-Anesthesia Assessment: - Prior to the procedure, a History and Physical was performed, and patient medications and allergies were reviewed. The patient's tolerance of previous anesthesia was also reviewed. The risks and benefits of the procedure and the sedation options and risks were discussed with the patient. All questions were answered, and informed consent was obtained. Prior Anticoagulants: The patient has taken no previous anticoagulant or antiplatelet agents. ASA Grade Assessment: III - A patient with severe systemic disease. After reviewing the risks and benefits, the patient was deemed in satisfactory condition to undergo the procedure. After I obtained informed consent, the scope was passed under direct vision. Throughout the procedure, the patient's blood pressure, pulse, and oxygen saturations were monitored continuously. The Scope was introduced through the anus and advanced to the cecum, identified by appendiceal orifice and ileocecal valve. The colonoscopy was unusually difficult due to excessive bleeding, significant looping and a tortuous colon. Successful completion of the procedure was aided by changing the patient to a supine position, using manual pressure and lavage. The patient tolerated the procedure well. The quality of the bowel preparation was fair. Findings: The perianal and digital rectal examinations were normal. Pertinent negatives include normal sphincter tone, no palpable rectal lesions and no anal lesion or abnormality was detected. A 8 mm polyp was found in the mid ascending colon. The polyp was sessile. Polypectomy was not attempted due to the patient taking anticoagulation medication. Clotted blood was seen in the cecum, secondary to previous polypectomy procedure. For hemostasis, three hemostatic clips were successfully placed (MR conditional). There was no bleeding during, and at the end, of the procedure. Area was successfully injected with 15 mL of a 1:20,000 solution of epinephrine for hemostasis. The area involved the proximal side of the Red blood was found in the rectum, in the ascending colon and in the cecum. Impression: - One 8 mm polyp in the mid ascending colon. Resection not attempted. - Bleeding in the cecum secondary to previous polypectomy. Clips (MR conditional) were placed. Injected. - Blood in the rectum, in the ascending colon and in the cecum. - No specimens collected. Recommendation: - Return patient to hospital blank for ongoing care. - Clear liquid diet. - Continue to hold Coumadin and administer 1 mg Vit K. If Hb decreases or evidence of ongoing bleeding would favor reversal with FFP /clotting factors MD Jean-Paul Gao MD 04/04/2017 4:46:44 PM This report has been signed electronically. Note Initiated On: 04/04/2017 2:22 PM I attest to the content of the Intraoperative Record and orders documented therein, exceptions below
--- NOTE | 2017-04-04 17:13 | Anesthesiology Progress Note ---
Anesthesia Post Op Note Date & Time Apr 04, 2017 at 17:12 Vital Signs Pain Intensity: 0.0 Vital Signs Past 12 Hours Date Time Temp Pulse Resp B/P (MAP) Pulse Ox O2 Delivery O2 Flow Rate FiO2 04/04/17 16:45 66 16 131/79 (96) 96 Room Air 04/04/17 16:30 73 16 110/74 (86) 95 Room Air 04/04/17 16:15 82 12 118/65 (82) 97 Room Air 04/04/17 14:41 36.7 75 20 103/59 (74) 97 Room Air 04/04/17 14:03 36.7 81 18 110/72 94 Room Air 04/04/17 12:00 Room Air 04/04/17 11:12 36.7 81 18 110/72 (85) 94 Room Air 04/04/17 10:15 Room Air 04/04/17 08:00 Nasal Cannula 2.0 04/04/17 07:29 36.5 71 18 132/84 (100) 96 Nasal Cannula Notes Mental Status: alert / awake / arousable, participated in evaluation Pt Amnestic to Procedure: Yes Nausea / Vomiting: adequately controlled Pain: adequately controlled Airway Patency, RR, SpO2: stable & adequate BP & HR: stable & adequate Hydration State: stable & adequate Anesthetic Complications: no major complications apparent
[2017-04-04] MEDS ORDERED: PHYTONADIONE INJ 2.5 MG in SODIUM CHLORIDE 0.9% 50ML 50 ML IV ONE (17:30)
--- NOTE | 2017-04-04 22:39 | Progress Note ---
Subjective Date of Service: Apr 04, 2017. Subjective Patient had his colonoscopy today. Patient reports doing well. Patient denies any pain, nausea, vomiting or blood in stool. Problem List Medical Problems: (1) Anemia Status: Acute Review of Systems Constitutional: No fever, No chills Respiratory: No cough, No sputum Cardiac: No chest pain, No orthopnea Breast: No breast lump Abdomen: No pain, No nausea Male : No dysuria Neurologic: No memory loss, No paralysis Endo: No fatigue Skin: No rash, No itch All Other Systems: Reviewed and Negative Medications Current Inpatient Medications Medications (Trade) Dose Ordered Sig/Emily Route Start Time Stop Time Status Last Admin Dose Admin Acetaminophen (Tylenol Tab) 650 mg Q4H PRN PO 04/02/17 17:30 05/02/17 17:29 04/03/17 23:25 650 MG Al Hydrox/Mg Hydrox/Simethicone (Maalox Max Susp) 15 ml Q4H PRN PO 04/02/17 17:30 05/02/17 17:29 Magnesium Hydroxide (Milk Of Magnesia Susp) 30 ml Q6H PRN PO 04/02/17 17:30 05/02/17 17:29 Polyethylene (Miralax Powder Packet) 17 gm DAILY PRN PO 04/02/17 17:30 05/02/17 17:29 Ondansetron HCl (Zofran Inj) 4 mg Q6H PRN IV 04/02/17 17:30 05/02/17 17:29 Alendronate Sodium (Fosamax Tab) 70 mg Rodriguez@0700 PO 04/07/17 07:00 05/07/17 06:59 Calcitriol (Rocaltrol Cap) 0.25 mcg DAILY PO 04/03/17 09:00 05/03/17 08:59 04/05/17 08:00 0.25 MCG Folic Acid (Folvite Tab) 1 mg DAILY PO 04/03/17 09:00 05/03/17 08:59 04/05/17 08:00 1 MG Metoprolol Succinate (Toprol Xl Tab) 50 mg DAILY PO 04/03/17 09:00 05/03/17 08:59 04/05/17 08:00 50 MG Multivitamins (Multivitamin Tab) 1 tab DAILY PO 04/03/17 09:00 05/03/17 08:59 04/05/17 08:00 1 TAB Phenobarbital (Phenobarbital Tab) 32.4 mg DAILY@1700 PO 04/03/17 17:00 05/03/17 16:59 04/05/17 17:04 32.4 MG Phenobarbital (Phenobarbital Tab) 64.8 mg QAM PO 04/03/17 09:00 05/03/17 08:59 04/05/17 08:36 64.8 MG Phenobarbital (Phenobarbital Tab) 64.8 mg QPM PO 04/02/17 21:00 05/02/17 20:59 04/05/17 21:53 64.8 MG Phenytoin Sodium (Dilantin Er Cap) 100 mg QAM PO 04/03/17 09:00 05/03/17 08:59 04/05/17 08:00 100 MG Phenytoin Sodium (Dilantin Er Cap) 200 mg DAILY@1700 PO 04/03/17 17:00 05/03/17 16:59 04/05/17 17:04 200 MG Phenytoin Sodium (Dilantin Er Cap) 200 mg QPM PO 04/02/17 21:00 05/02/17 20:59 04/05/17 21:13 200 MG Pantoprazole Sodium (Protonix Tab) 40 mg QAM PO 04/03/17 09:00 05/03/17 08:59 04/05/17 08:00 40 MG Miscellaneous (Iv Fluids Completed) 1 ea PRN PRN N/A 04/02/17 18:45 04/02/18 18:44 04/03/17 05:14 1 EA Lorazepam 0.5 mg/ Syringe 0.5 ml @ 0.5 mls/min Q2H PRN IV 04/03/17 21:30 05/03/17 21:29 04/03/17 21:38 0.5 MLS/MIN Lorazepam (Ativan Inj) 0.5 mg Q2H PRN IV 04/03/17 21:45 05/03/17 21:44 Objective Vital Signs Date Time Temp Pulse Resp B/P (MAP) Pulse Ox O2 Delivery O2 Flow Rate FiO2 04/04/17 20:11 36.1 73 18 129/82 (98) 97 Nasal Cannula 2.0 04/04/17 20:00 Nasal Cannula 04/04/17 17:20 95 Nasal Cannula 2.0 04/04/17 17:00 67 18 118/78 (91) 88 Room Air 04/04/17 16:45 66 16 131/79 (96) 96 Room Air 04/04/17 16:30 73 16 110/74 (86) 95 Room Air 04/04/17 16:15 82 12 118/65 (82) 97 Room Air 04/04/17 16:00 Nasal Cannula 04/04/17 14:41 36.7 75 20 103/59 (74) 97 Room Air 04/04/17 14:03 36.7 81 18 110/72 94 Room Air 04/04/17 12:00 Room Air 04/04/17 11:12 36.7 81 18 110/72 (85) 94 Room Air 04/04/17 10:15 Room Air 04/04/17 08:00 Nasal Cannula 2.0 04/04/17 07:29 36.5 71 18 132/84 (100) 96 Nasal Cannula 04/04/17 04:37 36.9 77 16 114/68 (83) 91 Room Air 04/04/17 04:00 Room Air 04/04/17 00:50 36.9 92 16 147/84 (105) 94 Room Air 04/04/17 00:49 36.6 111 20 96 Room Air 04/04/17 00:14 36.8 91 19 115/79 (91) 95 Room Air 04/04/17 00:00 Room Air Physical Exam General Appearance: WD/WN, no apparent distress Neck: supple, no adenopathy Respiratory/Chest: chest non-tender, lungs clear, normal breath sounds Cardiovascular: regular rate, rhythm, no edema, no gallop Abdomen: normal bowel sounds, non tender, soft Extremities: normal range of motion Skin: normal color Laboratory Results Last 24 Hours Test 04/04/17 05:46 White Blood Count 3.51 K/uL Red Blood Count 3.10 M/uL Hemoglobin 11.2 g/dL Hematocrit 32.8 % Mean Corpuscular Volume 105.8 fL Mean Corpuscular Hemoglobin 36.1 pg Mean Corpuscular Hemoglobin Concent 34.1 g/dl Platelet Count 157 K/uL Mean Platelet Volume 11.0 fL Neutrophils (%) (Auto) 70.0 % Lymphocytes (%) (Auto) 13.7 % Monocytes (%) (Auto) 14.5 % Eosinophils (%) (Auto) 0.9 % Basophils (%) (Auto) 0.6 % Neutrophils # (Auto) 2.46 K/uL Lymphocytes # (Auto) 0.48 K/uL Monocytes # (Auto) 0.51 K/uL Eosinophils # (Auto) 0.03 K/uL Basophils # (Auto) 0.02 K/uL RDW Standard Deviation 50.3 fL RDW Coefficient of Variation 13.1 % Immature Granulocyte % (Auto) 0.3 % Immature Granulocyte # (Auto) 0.01 K/uL Prothrombin Time 37.4 SECONDS Prothromb Time International Ratio 3.3 Sodium Level 137 mmol/L Potassium Level 4.0 mmol/L Chloride Level 101 mmol/L Carbon Dioxide Level 28 mmol/L Anion Gap 8.0 mmol/L Blood Urea Nitrogen 10 mg/dl Creatinine 0.73 mg/dl Est Creatinine Clear Calc Drug Dose 91.1 ml/min Estimated GFR () 107.4 Estimated GFR (Non- 92.7 BUN/Creatinine Ratio 13.8 Random Glucose 100 mg/dl Calcium Level 8.2 mg/dl Assessment and Plan Patient is a pleasant 71 y/o male, with PMHx of a.fib, MVR, and seizure disorder , who presented to the ED because of BRBPR since 03/30. BPBPR s/p colonoscopy on 03/29: -Had colonoscopy today, showed clot on colonoscopy - Follow H&H - Type and screen completed - IVF @100 ml/hr - Hold ASA and Coumadin -Gave vit K - a.fib, MVR- follows w/ Dr. Hernandez: - Hold Coumadin- follow INR - Continue Metoprolol 50 mg daily Seizure disorder- follows w/ Dr. Delatorre: Continue Phenobarbital, Phenytoin, folic acid GI prophylaxis: Protonix DVT prophylaxis: TEDs/SCDs; chemical means contraindicated due to rectal bleeding Code Status: LEVEL I, FULL Dispo: From home, lives w/ - no discharge needs anticipated Continued [facility] stay due to: other (awaiting colonscopy tomorrow) Discharge planning: home
[2017-04-05 03:07] VITALS: BP 105/66; PULSE 68; TEMP 37.1; O2SAT 95
[2017-04-05 05:43] LABS: INR 1.6 (0.9-1.1); PROTHROMBIN TIME (PATIENT) 17.5 SECONDS (9.0-12.0)
[2017-04-05 06:06] LABS: BUN/CREATININE RATIO 10.3 (10-20); CALCIUM 7.8 mg/dl (8.5-10.1); CREATININE 0.64 mg/dl (0.60-1.40); POTASSIUM 3.6 mmol/L (3.5-5.1)
[2017-04-05 07:22] VITALS: BP 113/68; PULSE 75; TEMP 37.4; O2SAT 90
[2017-04-05] MEDS: CALCITRIOL 0.25 MCG CAP PO SCH (08:00)
[2017-04-05] MEDS: MULTIVITAMIN TAB PO SCH (08:00)
[2017-04-05] MEDS: PANTOprazole SOD 40 MG TAB PO SCH (08:00)
[2017-04-05] MEDS: METOPROLOL SUCC 50MG EXT REL TAB PO SCH (08:00)
[2017-04-05] MEDS: PHENYTOIN SODIUM ER 100 MG CAP PO SCH ×3 (08:00→21:13)
[2017-04-05] MEDS: PHENOBARBITAL 32.4 MG TAB PO SCH ×3 (08:36→21:53)
[2017-04-05 08:39] LABS: HEMATOCRIT 31.1 % (42-52); MEAN CELL VOLUME 107.2 fL (80-100); MEAN CORPUSCULAR HEMOGLOBIN 36.2 pg (25-34); MEAN CORPUSCULAR HGB CONC 33.8 g/dl (32-36); MEAN PLATELET VOLUME 11.5 fL (7.4-10.4); PLATELET COUNT 163 K/uL (130-400)
[2017-04-05 11:58] VITALS: BP 111/75; PULSE 73; TEMP 36.9; O2SAT 95
--- NOTE | 2017-04-05 14:43 | Gastroenterology Progress Note ---
Progress Note Date of Service: Apr 05, 2017 Subjective Pt evaluation today including: conversation w/ patient, conversation w/ family (), physical exam, chart review, lab review, review of studies, review of inpatient medication list cc f/u GI bleeding HPI No stools since colonscopy per patient. Denies abd pain. Tolerating clear liquids. Review of Systems Respiratory: No shortness of breath Cardiac: No chest pain Medications Current Inpatient Medications Medications (Trade) Dose Ordered Sig/Emily Route Start Time Stop Time Status Last Admin Dose Admin Acetaminophen (Tylenol Tab) 650 mg Q4H PRN PO 04/02/17 17:30 05/02/17 17:29 04/03/17 23:25 650 MG Al Hydrox/Mg Hydrox/Simethicone (Maalox Max Susp) 15 ml Q4H PRN PO 04/02/17 17:30 05/02/17 17:29 Magnesium Hydroxide (Milk Of Magnesia Susp) 30 ml Q6H PRN PO 04/02/17 17:30 05/02/17 17:29 Polyethylene (Miralax Powder Packet) 17 gm DAILY PRN PO 04/02/17 17:30 05/02/17 17:29 Ondansetron HCl (Zofran Inj) 4 mg Q6H PRN IV 04/02/17 17:30 05/02/17 17:29 Alendronate Sodium (Fosamax Tab) 70 mg Rodriguez@0700 PO 04/07/17 07:00 05/07/17 06:59 Calcitriol (Rocaltrol Cap) 0.25 mcg DAILY PO 04/03/17 09:00 05/03/17 08:59 04/05/17 08:00 0.25 MCG Folic Acid (Folvite Tab) 1 mg DAILY PO 04/03/17 09:00 05/03/17 08:59 04/05/17 08:00 1 MG Metoprolol Succinate (Toprol Xl Tab) 50 mg DAILY PO 04/03/17 09:00 05/03/17 08:59 04/05/17 08:00 50 MG Multivitamins (Multivitamin Tab) 1 tab DAILY PO 04/03/17 09:00 05/03/17 08:59 04/05/17 08:00 1 TAB Phenobarbital (Phenobarbital Tab) 32.4 mg DAILY@1700 PO 04/03/17 17:00 05/03/17 16:59 04/04/17 17:28 32.4 MG Phenobarbital (Phenobarbital Tab) 64.8 mg QAM PO 04/03/17 09:00 05/03/17 08:59 04/05/17 08:36 64.8 MG Phenobarbital (Phenobarbital Tab) 64.8 mg QPM PO 04/02/17 21:00 05/02/17 20:59 04/04/17 22:19 64.8 MG Phenytoin Sodium (Dilantin Er Cap) 100 mg QAM PO 04/03/17 09:00 05/03/17 08:59 04/05/17 08:00 100 MG Phenytoin Sodium (Dilantin Er Cap) 200 mg DAILY@1700 PO 04/03/17 17:00 05/03/17 16:59 04/04/17 17:28 200 MG Phenytoin Sodium (Dilantin Er Cap) 200 mg QPM PO 04/02/17 21:00 05/02/17 20:59 04/04/17 22:20 200 MG Pantoprazole Sodium (Protonix Tab) 40 mg QAM PO 04/03/17 09:00 05/03/17 08:59 04/05/17 08:00 40 MG Miscellaneous (Iv Fluids Completed) 1 ea PRN PRN N/A 04/02/17 18:45 04/02/18 18:44 04/03/17 05:14 1 EA Lorazepam 0.5 mg/ Syringe 0.5 ml @ 0.5 mls/min Q2H PRN IV 04/03/17 21:30 05/03/17 21:29 04/03/17 21:38 0.5 MLS/MIN Lorazepam (Ativan Inj) 0.5 mg Q2H PRN IV 04/03/17 21:45 05/03/17 21:44 Objective Vital Signs Date Time Temp Pulse Resp B/P (MAP) Pulse Ox O2 Delivery O2 Flow Rate FiO2 04/05/17 11:58 36.9 73 16 111/75 (87) 95 Room Air 04/05/17 08:30 Room Air 2.0 Nasal Cannula 04/05/17 07:22 37.4 75 16 113/68 (83) 90 Room Air 04/05/17 04:00 Room Air 04/05/17 03:07 37.1 68 16 105/66 (79) 95 Room Air 04/05/17 00:00 Nasal Cannula 2.0 04/04/17 23:42 36.4 99 20 119/70 (86) 97 Room Air 04/04/17 20:11 36.1 73 18 129/82 (98) 97 Nasal Cannula 2.0 04/04/17 20:00 Nasal Cannula 04/04/17 17:20 95 Nasal Cannula 2.0 04/04/17 17:00 67 18 118/78 (91) 88 Room Air 04/04/17 16:45 66 16 131/79 (96) 96 Room Air 04/04/17 16:30 73 16 110/74 (86) 95 Room Air 04/04/17 16:15 82 12 118/65 (82) 97 Room Air 04/04/17 16:00 Nasal Cannula 04/04/17 14:41 36.7 75 20 103/59 (74) 97 Room Air Physical Exam General Appearance: WD/WN, no apparent distress Respiratory/Chest: lungs clear, no respiratory distress Cardiovascular: no edema, no murmur Abdomen: normal bowel sounds, non tender, soft, no organomegaly, no pulsatile mass Neurologic/Psych: normal mood/affect, oriented x 3 Laboratory Results Last 24 Hours Test 04/05/17 05:17 White Blood Count 4.60 K/uL Red Blood Count 2.90 M/uL Hemoglobin 10.5 g/dL Hematocrit 31.1 % Mean Corpuscular Volume 107.2 fL Mean Corpuscular Hemoglobin 36.2 pg Mean Corpuscular Hemoglobin Concent 33.8 g/dl RDW Standard Deviation 52.2 fL RDW Coefficient of Variation 13.2 % Platelet Count 163 K/uL Mean Platelet Volume 11.5 fL Prothrombin Time 17.5 SECONDS Prothromb Time International Ratio 1.6 Sodium Level 143 mmol/L Potassium Level 3.6 mmol/L Chloride Level 108 mmol/L Carbon Dioxide Level 29 mmol/L Anion Gap 6.0 mmol/L Blood Urea Nitrogen 7 mg/dl Creatinine 0.64 mg/dl Est Creatinine Clear Calc Drug Dose 103.9 ml/min Estimated GFR () 113.4 Estimated GFR (Non- 97.8 BUN/Creatinine Ratio 10.3 Random Glucose 82 mg/dl Calcium Level 7.8 mg/dl Assessment and Plan GI bleeding--postpolypectomy---cecal polyp site, Recommend he hold coumadin until he goes to anticoagulation clinic week from today then restart if no further bleeding. If H and H stable with no further bleeding then can be DCed tomorrow. Low fiber diet started and recommend that for 2 weeks. acute blood loss anemia--Hgb drop today but no clinical evidence of bleeding suspect reequilabration anticoagulation--hold coumadin as above. colon polyps s/p outpt polypectomy.
[2017-04-05 15:53] VITALS: BP 108/65; PULSE 72; TEMP 36.9; O2SAT 94
[2017-04-05 23:29] VITALS: BP 121/71; PULSE 72; TEMP 36.8; O2SAT 92
[2017-04-06] MEDS ORDERED: COUGH DROP (SUGAR FREE) LOZ 24 LOZ/1 BOX ONE (02:56)
[2017-04-06 03:53] VITALS: BP 120/76; PULSE 76; TEMP 36.8; O2SAT 99
[2017-04-06 06:37] LABS: HEMATOCRIT 34.2 % (42-52); MEAN CELL VOLUME 107.9 fL (80-100); MEAN CORPUSCULAR HEMOGLOBIN 35.6 pg (25-34); MEAN PLATELET VOLUME 10.9 fL (7.4-10.4); PLATELET COUNT 180 K/uL (130-400); RED BLOOD COUNT 3.17 M/uL (4.7-6.1); WHITE BLOOD COUNT 4.56 K/uL (4.8-10.8)
[2017-04-06 06:58] VITALS: BP 122/80; PULSE 65; TEMP 37.1; O2SAT 99
--- NOTE | 2017-04-06 07:33 | Progress Note ---
Subjective Date of Service: Apr 05, 2017. seen at 17:00 Subjective Pt evaluation today including: conversation w/ patient, physical exam, chart review, lab review Patient reports feeling back to baseline. Patient wants to go home today, but undersands the reason to stay as we are monitoring his "blood levels". Problem List Medical Problems: (1) Anemia Status: Acute Review of Systems Constitutional: No fever, No chills Respiratory: No cough, No sputum Cardiac: No chest pain, No orthopnea Abdomen: No pain, No nausea Musculoskeletal: No joint pain Neurologic: No memory loss, No paralysis Psychiatric: No depression symptoms, No anhedonism All Other Systems: Reviewed and Negative Medications Current Inpatient Medications Medications (Trade) Dose Ordered Sig/Emily Route Start Time Stop Time Status Last Admin Dose Admin Acetaminophen (Tylenol Tab) 650 mg Q4H PRN PO 04/02/17 17:30 05/02/17 17:29 04/03/17 23:25 650 MG Al Hydrox/Mg Hydrox/Simethicone (Maalox Max Susp) 15 ml Q4H PRN PO 04/02/17 17:30 05/02/17 17:29 Magnesium Hydroxide (Milk Of Magnesia Susp) 30 ml Q6H PRN PO 04/02/17 17:30 05/02/17 17:29 Polyethylene (Miralax Powder Packet) 17 gm DAILY PRN PO 04/02/17 17:30 05/02/17 17:29 Ondansetron HCl (Zofran Inj) 4 mg Q6H PRN IV 04/02/17 17:30 05/02/17 17:29 Alendronate Sodium (Fosamax Tab) 70 mg Rodriguez@0700 PO 04/07/17 07:00 05/07/17 06:59 Calcitriol (Rocaltrol Cap) 0.25 mcg DAILY PO 04/03/17 09:00 05/03/17 08:59 04/05/17 08:00 0.25 MCG Folic Acid (Folvite Tab) 1 mg DAILY PO 04/03/17 09:00 05/03/17 08:59 04/05/17 08:00 1 MG Metoprolol Succinate (Toprol Xl Tab) 50 mg DAILY PO 04/03/17 09:00 05/03/17 08:59 04/05/17 08:00 50 MG Multivitamins (Multivitamin Tab) 1 tab DAILY PO 04/03/17 09:00 05/03/17 08:59 04/05/17 08:00 1 TAB Phenobarbital (Phenobarbital Tab) 32.4 mg DAILY@1700 PO 04/03/17 17:00 05/03/17 16:59 04/05/17 17:04 32.4 MG Phenobarbital (Phenobarbital Tab) 64.8 mg QAM PO 04/03/17 09:00 05/03/17 08:59 04/05/17 08:36 64.8 MG Phenobarbital (Phenobarbital Tab) 64.8 mg QPM PO 04/02/17 21:00 05/02/17 20:59 04/05/17 21:53 64.8 MG Phenytoin Sodium (Dilantin Er Cap) 100 mg QAM PO 04/03/17 09:00 05/03/17 08:59 04/05/17 08:00 100 MG Phenytoin Sodium (Dilantin Er Cap) 200 mg DAILY@1700 PO 04/03/17 17:00 05/03/17 16:59 04/05/17 17:04 200 MG Phenytoin Sodium (Dilantin Er Cap) 200 mg QPM PO 04/02/17 21:00 05/02/17 20:59 04/05/17 21:13 200 MG Pantoprazole Sodium (Protonix Tab) 40 mg QAM PO 04/03/17 09:00 05/03/17 08:59 04/05/17 08:00 40 MG Miscellaneous (Iv Fluids Completed) 1 ea PRN PRN N/A 04/02/17 18:45 04/02/18 18:44 04/03/17 05:14 1 EA Lorazepam 0.5 mg/ Syringe 0.5 ml @ 0.5 mls/min Q2H PRN IV 04/03/17 21:30 05/03/17 21:29 04/03/17 21:38 0.5 MLS/MIN Lorazepam (Ativan Inj) 0.5 mg Q2H PRN IV 04/03/17 21:45 05/03/17 21:44 Objective Vital Signs Date Time Temp Pulse Resp B/P (MAP) Pulse Ox O2 Delivery O2 Flow Rate FiO2 04/06/17 06:58 37.1 65 18 122/80 (94) 99 2.0 04/06/17 04:00 Room Air 2.0 Nasal Cannula 04/06/17 03:53 36.8 76 20 120/76 (91) 99 2.0 04/06/17 00:00 Room Air 2.0 Nasal Cannula 04/05/17 23:29 36.8 72 18 121/71 (88) 92 Room Air 04/05/17 22:00 Room Air 2.0 Nasal Cannula 04/05/17 16:00 Room Air 2.0 Nasal Cannula 04/05/17 15:53 36.9 72 18 108/65 (79) 94 Nasal Cannula 2.0 04/05/17 12:00 Room Air 2.0 Nasal Cannula 04/05/17 11:58 36.9 73 16 111/75 (87) 95 Room Air 04/05/17 08:30 Room Air 2.0 Nasal Cannula Physical Exam General Appearance: WD/WN, no apparent distress Neck: supple, no adenopathy, thyroid normal Respiratory/Chest: chest non-tender, lungs clear, normal breath sounds Cardiovascular: regular rate, rhythm, no edema, no gallop Abdomen: normal bowel sounds, non tender, soft Extremities: normal range of motion, non-tender 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 BPBPR s/p colonoscopy on 03/29: -Had colonoscopy today, showed clot on colonoscopy -Colonoscopy findings - - One 8 mm polyp in the mid ascending colon. Resection not attempted. - Bleeding in the cecum secondary to previous polypectomy. Clips (MR conditional) were placed. Injected. - Blood in the rectum, in the ascending colon and in the cecum. - No specimens collected. Recommendation: - Return patient to hospital blank for ongoing care. - Clear liquid diet. - Continue to hold Coumadin and administer 1 mg Vit K. If Hb decreases or evidence of ongoing bleeding would favor reversal with FFP /clotting factors - Follow H&H, will continue to follow in AM. It had a mild decrease yesterday, but overall no significant change from admission - D/W Dr. Yuen. - Type and screen completed - Hold ASA and Coumadin -Gave vit K -Plan is to hold anticoagulation until patient goes to anticoagulation clinic next week. - a.fib, MVR- follows w/ Dr. Hernandez: - Hold Coumadin- follow INR - Continue Metoprolol 50 mg daily Seizure disorder- follows w/ Dr. Delatorre: Continue Phenobarbital, Phenytoin, folic acid GI prophylaxis: Protonix DVT prophylaxis: TEDs/SCDs; chemical means contraindicated due to rectal bleeding Code Status: LEVEL I, FULL Dispo: From home, lives w/ - no discharge needs anticipated Continued [facility] stay due to: other (awaiting colonscopy tomorrow) Discharge planning: home
[2017-04-06] MEDS: PHENYTOIN SODIUM ER 100 MG CAP PO SCH (08:11)
[2017-04-06] MEDS: METOPROLOL SUCC 50MG EXT REL TAB PO SCH (08:11)
[2017-04-06] MEDS: CALCITRIOL 0.25 MCG CAP PO SCH (08:11)
[2017-04-06] MEDS: PHENOBARBITAL 32.4 MG TAB PO SCH (08:11)
[2017-04-06] MEDS: MULTIVITAMIN TAB PO SCH (08:11)
[2017-04-06] MEDS: PANTOprazole SOD 40 MG TAB PO SCH (08:11)
[2017-04-06 11:30] VITALS: BP 128/78; PULSE 77; TEMP 37.1; O2SAT 93
--- NOTE | 2017-04-06 11:40 | Gastroenterology Progress Note ---
Progress Note Date of Service: Apr 06, 2017 Subjective Pt evaluation today including: conversation w/ patient, physical exam, chart review, lab review, review of studies, review of inpatient medication list CC f/u GI bleeding HPI No stools post colonoscopy. NO abd pain. No N/V. Tolerating diet. Per my discussion with Dr Gurrola pt has lost a lot of weight. Review of Systems Respiratory: No shortness of breath Cardiac: No chest pain Medications Current Inpatient Medications Medications (Trade) Dose Ordered Sig/Emily Route Start Time Stop Time Status Last Admin Dose Admin Acetaminophen (Tylenol Tab) 650 mg Q4H PRN PO 04/02/17 17:30 05/02/17 17:29 04/03/17 23:25 650 MG Al Hydrox/Mg Hydrox/Simethicone (Maalox Max Susp) 15 ml Q4H PRN PO 04/02/17 17:30 05/02/17 17:29 Magnesium Hydroxide (Milk Of Magnesia Susp) 30 ml Q6H PRN PO 04/02/17 17:30 05/02/17 17:29 Polyethylene (Miralax Powder Packet) 17 gm DAILY PRN PO 04/02/17 17:30 05/02/17 17:29 Ondansetron HCl (Zofran Inj) 4 mg Q6H PRN IV 04/02/17 17:30 05/02/17 17:29 Alendronate Sodium (Fosamax Tab) 70 mg Rodriguez@0700 PO 04/07/17 07:00 05/07/17 06:59 Calcitriol (Rocaltrol Cap) 0.25 mcg DAILY PO 04/03/17 09:00 05/03/17 08:59 04/06/17 08:11 0.25 MCG Folic Acid (Folvite Tab) 1 mg DAILY PO 04/03/17 09:00 05/03/17 08:59 04/06/17 08:11 1 MG Metoprolol Succinate (Toprol Xl Tab) 50 mg DAILY PO 04/03/17 09:00 05/03/17 08:59 04/06/17 08:11 50 MG Multivitamins (Multivitamin Tab) 1 tab DAILY PO 04/03/17 09:00 05/03/17 08:59 04/06/17 08:11 1 TAB Phenobarbital (Phenobarbital Tab) 32.4 mg DAILY@1700 PO 04/03/17 17:00 05/03/17 16:59 04/05/17 17:04 32.4 MG Phenobarbital (Phenobarbital Tab) 64.8 mg QAM PO 04/03/17 09:00 05/03/17 08:59 04/06/17 08:11 64.8 MG Phenobarbital (Phenobarbital Tab) 64.8 mg QPM PO 04/02/17 21:00 05/02/17 20:59 04/05/17 21:53 64.8 MG Phenytoin Sodium (Dilantin Er Cap) 100 mg QAM PO 04/03/17 09:00 05/03/17 08:59 04/06/17 08:11 100 MG Phenytoin Sodium (Dilantin Er Cap) 200 mg DAILY@1700 PO 04/03/17 17:00 05/03/17 16:59 04/05/17 17:04 200 MG Phenytoin Sodium (Dilantin Er Cap) 200 mg QPM PO 04/02/17 21:00 05/02/17 20:59 04/05/17 21:13 200 MG Pantoprazole Sodium (Protonix Tab) 40 mg QAM PO 04/03/17 09:00 05/03/17 08:59 04/06/17 08:11 40 MG Miscellaneous (Iv Fluids Completed) 1 ea PRN PRN N/A 04/02/17 18:45 04/02/18 18:44 04/03/17 05:14 1 EA Lorazepam 0.5 mg/ Syringe 0.5 ml @ 0.5 mls/min Q2H PRN IV 04/03/17 21:30 05/03/17 21:29 04/03/17 21:38 0.5 MLS/MIN Lorazepam (Ativan Inj) 0.5 mg Q2H PRN IV 04/03/17 21:45 05/03/17 21:44 Objective Vital Signs Date Time Temp Pulse Resp B/P (MAP) Pulse Ox O2 Delivery O2 Flow Rate FiO2 04/06/17 08:00 Room Air 2.0 Nasal Cannula 04/06/17 06:58 37.1 65 18 122/80 (94) 99 2.0 04/06/17 04:00 Room Air 2.0 Nasal Cannula 04/06/17 03:53 36.8 76 20 120/76 (91) 99 2.0 04/06/17 00:00 Room Air 2.0 Nasal Cannula 04/05/17 23:29 36.8 72 18 121/71 (88) 92 Room Air 04/05/17 22:00 Room Air 2.0 Nasal Cannula 04/05/17 16:00 Room Air 2.0 Nasal Cannula 04/05/17 15:53 36.9 72 18 108/65 (79) 94 Nasal Cannula 2.0 04/05/17 12:00 Room Air 2.0 Nasal Cannula 04/05/17 11:58 36.9 73 16 111/75 (87) 95 Room Air Physical Exam General Appearance: WD/WN, no apparent distress Respiratory/Chest: lungs clear, no respiratory distress Cardiovascular: no edema, no murmur Abdomen: normal bowel sounds, non tender, soft, no organomegaly Neurologic/Psych: normal mood/affect, oriented x 3 Laboratory Results Last 24 Hours Test 04/06/17 06:22 White Blood Count 4.56 K/uL Red Blood Count 3.17 M/uL Hemoglobin 11.3 g/dL Hematocrit 34.2 % Mean Corpuscular Volume 107.9 fL Mean Corpuscular Hemoglobin 35.6 pg Mean Corpuscular Hemoglobin Concent 33.0 g/dl RDW Standard Deviation 51.7 fL RDW Coefficient of Variation 13.2 % Platelet Count 180 K/uL Mean Platelet Volume 10.9 fL Assessment and Plan GI bleeding--postpolypectomy---cecal polyp site, Recommend he hold coumadin until he goes to anticoagulation clinic next saturday. NO ASA or NSAIDS for one week. acute blood loss anemia--Hgb improved anticoagulation--hold coumadin as above. colon polyps s/p outpt polypectomy. weight loss--hospitalist to have patient see PCP for further evaluation of weight loss. OK for DC today from GI standpoint. Will sign off.
--- NOTE | 2017-04-06 11:42 | Discharge Instructions ---
Discharge Instructions Date of Service Apr 06, 2017. Admission Reason for Admission: Rectal Bleed Discharge Discharge Diagnosis / Problem: Lower GI Bleeding from polypectomy site Discharge Goals Goal(s): Decrease discomfort, Improve function Activity Recommendations Activity Limitations: resume your previous activity May use wheeled walker for ambulation Instructions / Follow-Up Instructions / Follow-Up F/U with anticoagulation clinic in the upcoming week for further instructions on anticoagulating medicine F/U with PCP in 1 week regarding unintentional weight loss which has occurred in the past 6 months (15 lbs loss) May require a hem/onc consult as an outpatient. Current Hospital Diet Patient's current hospital diet: Low Fiber Diet Discharge Diet Recommended Diet: Low Fiber Diet Procedures Procedures Performed: COLONOSCOPY WITH HEMASTASIS WITH HEMACLIP AND EPINEPHRINE Pending Studies Studies pending at discharge: no Laboratory Results Lipid Panel Test 02/11/17 10:26 Range/Units Triglycerides Level 72 0-150 mg/dl Cholesterol Level 144 0-200 mg/dl HDL Cholesterol 62 mg/dl Cholesterol/HDL Ratio 2.3 LDL Cholesterol, Calculated 68 mg/dl Medical Emergencies . Who to Call and When: Medical Emergencies: If at any time you feel your situation is an emergency, please call 911 immediately. . Non-Emergent Contact Non-Emergency issues call your: Primary Care Provider Call Non-Emergent contact if: you have any medication questions . . "Provider Documentation" section prepared by Damion Gurrola. . VTE Core Measure Inpt VTE Proph given/why not?: T.E.D. Stockings, SCD's, Contraindicated
--- NOTE | 2017-04-06 11:45 | Discharge Summary ---
Discharge Summary Date of Service Apr 06, 2017. Discharge Summary Admission Date: Apr 05, 2017 at 08:17 Discharge Date: Apr 06, 2017 Discharge Disposition: Home Principal Diagnosis: Lower GI Bleed Immunizations: Have You Had Influenza Vaccine: Yes History of Tetanus Vaccine?: Yes History of Pneumococcal: Yes History of Hepatitis B Vaccine: Yes Procedures: DICTATED BY: Jean-Paul Arzate M.D. Procedure Date: 04/04/2017 2:22 PM Procedure: Colonoscopy Indications: Treatment of bleeding from polypectomy site Medicines: Propofol per Anesthesia Complications: No immediate complications. Estimated blood loss: None. Estimated Blood Loss: Estimated blood loss: none. Procedure: Pre-Anesthesia Assessment: - Prior to the procedure, a History and Physical was performed, and patient medications and allergies were reviewed. The patient's tolerance of previous anesthesia was also reviewed. The risks and benefits of the procedure and the sedation options and risks were discussed with the patient. All questions were answered, and informed consent was obtained. Prior Anticoagulants: The patient has taken no previous anticoagulant or antiplatelet agents. ASA Grade Assessment: III - A patient with severe systemic disease. After reviewing the risks and benefits, the patient was deemed in satisfactory condition to undergo the procedure. After I obtained informed consent, the scope was passed under direct vision. Throughout the procedure, the patient's blood pressure, pulse, and oxygen saturations were monitored continuously. The Scope was introduced through the anus and advanced to the cecum, identified by appendiceal orifice and ileocecal valve. The colonoscopy was unusually difficult due to excessive bleeding, significant looping and a tortuous colon. Successful completion of the procedure was aided by changing the patient to a supine position, using manual pressure and lavage. The patient tolerated the procedure well. The quality of the bowel preparation was fair. Findings: The perianal and digital rectal examinations were normal. Pertinent negatives include normal sphincter tone, no palpable rectal lesions and no anal lesion or abnormality was detected. A 8 mm polyp was found in the mid ascending colon. The polyp was sessile. Polypectomy was not attempted due to the patient taking anticoagulation medication. Clotted blood was seen in the cecum, secondary to previous polypectomy procedure. For hemostasis, three hemostatic clips were successfully placed (MR conditional). There was no bleeding during, and at the end, of the procedure. Area was successfully injected with 15 mL of a 1:20,000 solution of epinephrine for hemostasis. The area involved the proximal side of the Red blood was found in the rectum, in the ascending colon and in the cecum. Impression: - One 8 mm polyp in the mid ascending colon. Resection not attempted. - Bleeding in the cecum secondary to previous polypectomy. Clips (MR conditional) were placed. Injected. - Blood in the rectum, in the ascending colon and in the cecum. - No specimens collected. Recommendation: - Return patient to hospital blank for ongoing care. - Clear liquid diet. - Continue to hold Coumadin and administer 1 mg Vit K. If Hb decreases or evidence of ongoing bleeding would favor reversal with FFP /clotting factors MD Jean-Paul Gao MD 04/04/2017 4:46:44 PM This report has been signed electronically. Note Initiated On: 04/04/2017 2:22 PM I attest to the content of the Intraoperative Record and orders documented therein, exceptions below Dictated: 04/04/17 1422 Signed: 04/04/17 8547 Consultations: Gastro Medication Reconciliation Continued Medications: Alendronate Sodium (Fosamax) 70 Mg Tab 70 MG PO , TAB SATURDAY Calcitriol (Calcitriol) 0.25 Mcg Cap 1 CAP PO DAILY Folic Acid (Folic Acid) 1 Mg Tab 1 TAB PO DAILY Metoprolol Succ (Toprol Xl) (Toprol-Xl) 50 Mg Tabcr 50 MG PO DAILY Multivitamin (Multivitamin) Tab 1 TAB PO DAILY, TAB Phenobarbital (Phenobarbital) 60 Mg Tab 60 MG PO QAM Phenobarbital (Phenobarbital) 30 Mg Tab 30 MG PO DAILY Phenobarbital (Phenobarbital) 60 Mg Tab 60 MG PO QPM Phenytoin Sodium Extended (Phenytek) 200 Mg Cap 100 MG PO QAM, CAP Phenytoin Sodium Extended (Phenytek) 200 Mg Cap 200 MG PO DAILY, CAP Phenytoin Sodium Extended (Phenytek) 200 Mg Cap 200 MG PO QPM, CAP Discontinued Medications: Aspirin (Aspirin Ec) 81 Mg Tab 81 MG PO DAILY Enoxaparin (Lovenox) 80 Mg/0.8 Ml Inj 80 MG SQ Q12H, SYR Warfarin Sod (Coumadin) 10 Mg Tab 1 TAB PO 3XWK MON. WED. FRI. Warfarin Sod (Coumadin) 7.5 Mg Tab 1 TAB PO 4XWK SUN. . . SAT. Discharge Exam Review of Systems: Constitutional: No fever, No chills Respiratory: No cough, No sputum, No wheezing Cardiovascular: No chest pain, No orthopnea, No PND Abdomen: No pain Neurologic: No memory loss, No paralysis, No weakness Physical Exam: General Appearance: WD/WN, no apparent distress Neck: supple, no adenopathy Respiratory/Chest: chest non-tender, lungs clear, normal breath sounds Cardiovascular: regular rate, rhythm, no edema, no gallop Abdomen / GI: normal bowel sounds, non tender, soft Extremities: normal inspection, no calf tenderness Skin: normal color, warm/dry Hospital Course History & Physical Date & Time of Service: Apr 02, 2017 at 17:28 Chief Complaint: Bloody Stool, Sent By Office Primary Care Physician: Bree Prado M.D. History of Present Illness Source: patient, clinic records, hospital records Patient is a pleasant 71 y/o male, with PMHx of a.fib, MVR, and seizure disorder , who presented to the ED because of BRBPR since 03/30. Patient had a surveillance colonoscopy by Dr. Arzate on 03/29- multiple polyps were removed. On Saturday, patient noticed bright red blood with bowel movement. He also notes loose stools. He has had 4 episodes since Saturday, his last being today in ED. He notes stool seem darker in color. He is on chronic Coumadin for a.fib/ MVR. Patient denies any fever, chills, sweats, lightheadedness, dizziness, vision changes, CP, palpitations, edema, SOB, wheezing, cough, abdominal pain, nausea, vomiting, diarrhea, urinary symptoms, numbness/tingling, weakness, muscle/joint pain, anxiety/depression, or new skin discoloration/changes. Past Medical/Surgical History Past Medical History: a.fib MVR seizure disorder Surgical History: s/p mitral valve replacement colonoscopy Family History Noncontributory Social History Smoking Status: Never Smoker Smokeless Tobacco Use: No Alcohol Use: none Drug Use: none Marital Status: Housing status: lives with family Immunizations History of Influenza Vaccine: Yes History of Tetanus Vaccine?: Yes History of Pneumococcal: Yes History of Hepatitis B Vaccine: Yes Multi-Drug Resistant Organisms History of MDRO: No Allergies Coded Allergies: No Known Allergies (Verified , 04/02/17) Home Medications Scheduled Alendronate Sodium (Fosamax), 70 MG PO WK Aspirin (Aspirin Ec), 81 MG PO DAILY Calcitriol (Calcitriol), 1 CAP PO DAILY Enoxaparin (Lovenox), 80 MG SQ Q12H Folic Acid (Folic Acid), 1 TAB PO DAILY Metoprolol Succ (Toprol Xl) (Toprol-Xl), 50 MG PO DAILY Multivitamin (Multivitamin), 1 TAB PO DAILY Phenobarbital (Phenobarbital), 60 MG PO QAM Phenobarbital (Phenobarbital), 30 MG PO DAILY Phenobarbital (Phenobarbital), 60 MG PO QPM Phenytoin Sodium Extended (Phenytek), 100 MG PO QAM Phenytoin Sodium Extended (Phenytek), 200 MG PO DAILY Phenytoin Sodium Extended (Phenytek), 200 MG PO QPM Warfarin Sod (Coumadin), 1 TAB PO 3XWK Warfarin Sod (Coumadin), 1 TAB PO 4XWK Physical Exam Vital Signs Date Time Temp Pulse Resp B/P (MAP) Pulse Ox O2 Delivery O2 Flow Rate FiO2 04/02/17 16:50 68 18 125/80 98 Room Air 04/02/17 15:13 64 04/02/17 13:02 36.7 81 18 112/73 96 Room Air General Appearance: no apparent distress Head: normocephalic, atraumatic Eyes: PERRL ENT: hearing grossly normal Neck: supple Respiratory/Chest: lungs clear, no respiratory distress, no accessory muscle use Cardiovascular: regular rate, rhythm, + pertinent finding (valve replacement ) Abdomen/GI: normal bowel sounds, non tender, soft Back: normal inspection Extremities/Musculoskelatal: no calf tenderness, no pedal edema Neurologic/Psych: alert, normal mood/affect, oriented x 3 Skin: normal color, warm/dry, no rash Diagnostics Laboratory Results Results Past 24 Hours Test 04/02/17 14:20 Range/Units White Blood Count 3.04 4.8-10.8 K/uL Red Blood Count 3.48 4.7-6.1 M/uL Hemoglobin 12.6 14.0-18.0 g/dL Hematocrit 37.2 42-52 % Mean Corpuscular Volume 106.9 80-100 fL Mean Corpuscular Hemoglobin 36.2 25-34 pg Mean Corpuscular Hemoglobin Concent 33.9 32-36 g/dl Platelet Count 155 130-400 K/uL Mean Platelet Volume 11.2 7.4-10.4 fL Neutrophils (%) (Auto) 68.5 % Lymphocytes (%) (Auto) 16.4 % Monocytes (%) (Auto) 11.5 % Eosinophils (%) (Auto) 2.0 % Basophils (%) (Auto) 1.3 % Neutrophils # (Auto) 2.08 1.4-6.5 K/uL Lymphocytes # (Auto) 0.50 1.2-3.4 K/uL Monocytes # (Auto) 0.35 0.11-0.59 K/uL Eosinophils # (Auto) 0.06 0-0.5 K/uL Basophils # (Auto) 0.04 0-0.2 K/uL RDW Standard Deviation 51.9 36.4-46.3 fL RDW Coefficient of Variation 13.3 11.5-14.5 % Immature Granulocyte % (Auto) 0.3 % Immature Granulocyte # (Auto) 0.01 0.00-0.02 K/uL Prothrombin Time 38.4 9.0-12.0 SECONDS Prothromb Time International Ratio 3.4 0.9-1.1 Activated Partial Thromboplast Time 53.6 21.0-31.0 SECONDS Partial Thromboplastin Ratio 2.1 Sodium Level 140 136-145 mmol/L Potassium Level 4.2 3.5-5.1 mmol/L Chloride Level 106 98-107 mmol/L Carbon Dioxide Level 27 21-32 mmol/L Anion Gap 7.0 3-11 mmol/L Blood Urea Nitrogen 19 7-18 mg/dl Creatinine 0.76 0.60-1.40 mg/dl Est Creatinine Clear Calc Drug Dose 87.2 ml/min Estimated GFR () 105.6 Estimated GFR (Non- 91.1 BUN/Creatinine Ratio 24.7 10-20 Random Glucose 104 70-99 mg/dl Lactic Acid Level 1.2 0.4-2.0 mmol/L Calcium Level 8.9 8.5-10.1 mg/dl Total Bilirubin 0.6 0.2-1 mg/dl Aspartate Amino Transf (AST/SGOT) 40 15-37 U/L Alanine Aminotransferase (ALT/SGPT) 42 12-78 U/L Alkaline Phosphatase 168 45-117 U/L Total Protein 6.9 6.4-8.2 gm/dl Albumin 3.8 3.4-5.0 gm/dl Globulin 3.1 2.5-4.0 gm/dl Albumin/Globulin Ratio 1.2 0.9-2 Impression Assessment and Plan Patient is a pleasant 71 y/o male, with PMHx of a.fib, MVR, and seizure disorder , who presented to the ED because of BRBPR since 03/30. BPBPR s/p colonoscopy on 03/29: - Admit to med/surg - Follow H&H - Type and screen completed - IVF @100 ml/hr - Hold ASA and Coumadin - Clear liquid diet incase intervention need - Consult GI, appreciate recommendations a.fib, MVR- follows w/ Dr. Hernandez: - Hold Coumadin- follow INR - Continue Metoprolol 50 mg daily Seizure disorder- follows w/ Dr. Delatorre: Continue Phenobarbital, Phenytoin, folic acid GI prophylaxis: Protonix DVT prophylaxis: TEDs/SCDs; chemical means contraindicated due to rectal bleeding Code Status: LEVEL I, FULL Dispo: From home, lives w/ - no discharge needs anticipated Attending Addendum: I have physically seen and examined this patient, have directed the physician assistants medical activities, and agree with the H&P as noted above with the following exceptions as noted. The patient is awake, alert and oriented 3, well-developed and well-nourished , normocephalic and atraumatic, lying in bed and in no acute distress. HEENT--PERRL, EOMI, mucous membranes and oropharynx dry. Neck--supple, no JVD or bruits, thyroid normal, trachea midline, no adenopathy. Heart--normal S1 and S2, valvular click. no murmurs, rubs or gallops. Lungs--clear bilaterally with good air movement, no respiratory distress, no accessory muscle use. Abdomen--normal bowel sounds and soft, nontender and nondistended, no hernias or masses, no organomegaly. Extremities--no cyanosis, clubbing or edema. There are good distal pulses b/l. Dermatologic--normal skin turgor, normal color, warm and dry, no abnormal lymph nodes, no rash. Neurologic--cranial nerves II through XII grossly intact. Rheumatologic--normal range of motion, nontender, muscles and joints. Psychiatric--normal affect. Assessment and Plan: Right red blood per rectum/status post colonoscopy on 03/29-- Follow serial H&H. NSS at 100 ML's per hour. Hold aspirin and Coumadin Clear liquid diet Consult GI A. fib/MVR-- Old Coumadin Continue metoprolol with hold parameters. Level of Care Med/Surg Advanced Directives Existing Advance Directive: No Existing Living Will: No Existing Power of Senior Safety Support Manager: No Resuscitation Status FULL RESUSCITATION VTE Prophylaxis VTE Risk Assessment Done? Y/N: Yes Risk Level: Moderate Given or contraindicated: T.E.D. Stockings, SCD's, Contraindicated Social Service Consult None Apply <Electronically signed by Becki Johnson PA-C> <Electronically signed by Giancarlo Chahal M.D.> Signed: 04/02/17 1742 Signed: 04/04/17 1146 Hospital course Patient is a pleasant 71 y/o male, with PMHx of a.fib, MVR, and seizure disorder , who presented to the ED because of BRBPR since 03/30. BPBPR s/p colonoscopy on 03/29: -Had colonoscopy today, showed clot on colonoscopy -Colonoscopy findings - - One 8 mm polyp in the mid ascending colon. Resection not attempted. - Bleeding in the cecum secondary to previous polypectomy. Clips (MR conditional) were placed. Injected. - Blood in the rectum, in the ascending colon and in the cecum. - No specimens collected. Recommendation: - Return patient to hospital blank for ongoing care. - Clear liquid diet. - Continue to hold Coumadin and administer 1 mg Vit K. If Hb decreases or evidence of ongoing bleeding would favor reversal with FFP /clotting factors - D/W Dr. Yuen. - Type and screen completed - Hold ASA and Coumadin -Gave vit K -Plan is to hold anticoagulation until patient goes to anticoagulation clinic next week. - a.fib, MVR- follows w/ Dr. Hernandez: - Hold Coumadin- follow INR - Continue Metoprolol 50 mg daily Seizure disorder- follows w/ Dr. Delatorre: Continue Phenobarbital, Phenytoin, folic acid GI prophylaxis: Protonix DVT prophylaxis: TEDs/SCDs; chemical means contraindicated due to rectal bleeding Code Status: LEVEL I, FULL Dispo: From home, lives w/ - no discharge needs anticipated Below is Dr. Yuen's final note Progress Note Date of Service: Apr 06, 2017 Subjective Pt evaluation today including: conversation w/ patient, physical exam, chart review, lab review, review of studies, review of inpatient medication list CC f/u GI bleeding HPI No stools post colonoscopy. NO abd pain. No N/V. Tolerating diet. Per my discussion with Dr Gurrola pt has lost a lot of weight. Review of Systems Respiratory: No shortness of breath Cardiac: No chest pain Medications Current Inpatient Medications Medications (Trade) Dose Ordered Sig/Emily Route Start Time Stop Time Status Last Admin Dose Admin Acetaminophen (Tylenol Tab) 650 mg Q4H PRN PO 04/02/17 17:30 05/02/17 17:29 04/03/17 23:25 650 MG Al Hydrox/Mg Hydrox/Simethicone (Maalox Max Susp) 15 ml Q4H PRN PO 04/02/17 17:30 05/02/17 17:29 Magnesium Hydroxide (Milk Of Magnesia Susp) 30 ml Q6H PRN PO 04/02/17 17:30 05/02/17 17:29 Polyethylene (Miralax Powder Packet) 17 gm DAILY PRN PO 04/02/17 17:30 05/02/17 17:29 Ondansetron HCl (Zofran Inj) 4 mg Q6H PRN IV 04/02/17 17:30 05/02/17 17:29 Alendronate Sodium (Fosamax Tab) 70 mg Rodriguez@0700 PO 04/07/17 07:00 05/07/17 06:59 Calcitriol (Rocaltrol Cap) 0.25 mcg DAILY PO 04/03/17 09:00 05/03/17 08:59 04/06/17 08:11 0.25 MCG Folic Acid (Folvite Tab) 1 mg DAILY PO 04/03/17 09:00 05/03/17 08:59 04/06/17 08:11 1 MG Metoprolol Succinate (Toprol Xl Tab) 50 mg DAILY PO 04/03/17 09:00 05/03/17 08:59 04/06/17 08:11 50 MG Multivitamins (Multivitamin Tab) 1 tab DAILY PO 04/03/17 09:00 05/03/17 08:59 04/06/17 08:11 1 TAB Phenobarbital (Phenobarbital Tab) 32.4 mg DAILY@1700 PO 04/03/17 17:00 05/03/17 16:59 04/05/17 17:04 32.4 MG Phenobarbital (Phenobarbital Tab) 64.8 mg QAM PO 04/03/17 09:00 05/03/17 08:59 04/06/17 08:11 64.8 MG Phenobarbital (Phenobarbital Tab) 64.8 mg QPM PO 04/02/17 21:00 05/02/17 20:59 04/05/17 21:53 64.8 MG Phenytoin Sodium (Dilantin Er Cap) 100 mg QAM PO 04/03/17 09:00 05/03/17 08:59 04/06/17 08:11 100 MG Phenytoin Sodium (Dilantin Er Cap) 200 mg DAILY@1700 PO 04/03/17 17:00 05/03/17 16:59 04/05/17 17:04 200 MG Phenytoin Sodium (Dilantin Er Cap) 200 mg QPM PO 04/02/17 21:00 05/02/17 20:59 04/05/17 21:13 200 MG Pantoprazole Sodium (Protonix Tab) 40 mg QAM PO 04/03/17 09:00 05/03/17 08:59 04/06/17 08:11 40 MG Miscellaneous (Iv Fluids Completed) 1 ea PRN PRN N/A 04/02/17 18:45 04/02/18 18:44 04/03/17 05:14 1 EA Lorazepam 0.5 mg/ Syringe 0.5 ml @ 0.5 mls/min Q2H PRN IV 04/03/17 21:30 05/03/17 21:29 04/03/17 21:38 0.5 MLS/MIN Lorazepam (Ativan Inj) 0.5 mg Q2H PRN IV 04/03/17 21:45 05/03/17 21:44 Objective Vital Signs Date Time Temp Pulse Resp B/P (MAP) Pulse Ox O2 Delivery O2 Flow Rate FiO2 04/06/17 08:00 Room Air 2.0 Nasal Cannula 04/06/17 06:58 37.1 65 18 122/80 (94) 99 2.0 04/06/17 04:00 Room Air 2.0 Nasal Cannula 04/06/17 03:53 36.8 76 20 120/76 (91) 99 2.0 04/06/17 00:00 Room Air 2.0 Nasal Cannula 04/05/17 23:29 36.8 72 18 121/71 (88) 92 Room Air 04/05/17 22:00 Room Air 2.0 Nasal Cannula 04/05/17 16:00 Room Air 2.0 Nasal Cannula 04/05/17 15:53 36.9 72 18 108/65 (79) 94 Nasal Cannula 2.0 04/05/17 12:00 Room Air 2.0 Nasal Cannula 04/05/17 11:58 36.9 73 16 111/75 (87) 95 Room Air Physical Exam General Appearance: WD/WN, no apparent distress Respiratory/Chest: lungs clear, no respiratory distress Cardiovascular: no edema, no murmur Abdomen: normal bowel sounds, non tender, soft, no organomegaly Neurologic/Psych: normal mood/affect, oriented x 3 Laboratory Results Last 24 Hours Test 04/06/17 06:22 White Blood Count 4.56 K/uL Red Blood Count 3.17 M/uL Hemoglobin 11.3 g/dL Hematocrit 34.2 % Mean Corpuscular Volume 107.9 fL Mean Corpuscular Hemoglobin 35.6 pg Mean Corpuscular Hemoglobin Concent 33.0 g/dl RDW Standard Deviation 51.7 fL RDW Coefficient of Variation 13.2 % Platelet Count 180 K/uL Mean Platelet Volume 10.9 fL Assessment and Plan GI bleeding--postpolypectomy---cecal polyp site, Recommend he hold coumadin until he goes to anticoagulation clinic next saturday. NO ASA or NSAIDS for one week. acute blood loss anemia--Hgb improved anticoagulation--hold coumadin as above. colon polyps s/p outpt polypectomy. weight loss--hospitalist to have patient see PCP for further evaluation of weight loss. OK for DC today from GI standpoint. Will sign off. Total Time Spent: Greater than 30 minutes This includes examination of the patient, discharge planning, medication reconciliation, and communication with other providers. Discharge Instructions Please refer to the electronic Patient Visit Report (Discharge Instructions) for additional information. Follow-Up F/U with PCP in 1-2 weeks Additional Copies To Bree Prado M.D.
[2017-04-06 11:50] VITALS: BP 128/78; PULSE 77; TEMP 37.1; O2SAT 93
[2017-04-07] MEDS ORDERED: ALENDRONATE SODIUM 70 MG TAB PO SCH (07:00)
== END 2017-04-06 13:00 | disposition home or self-care (01) | DRG 908 ==
LOC: C.EDB 12:50 → C.MS2W 17:28 → EDBEDREQSVC 17:45 → ENRESERV 18:03 → CANRESERV 04-03 21:24 → ENRESERV 04-03 21:24 → C.MED 04-03 22:24 → OBSVTOIN 04-05 08:17
PROVIDERS: ADMIT Hospitalist; ATTEND Internal Medicine Sports Medicine
PROC: 3E0H8GC Introduction of Other Therapeutic Substance into Lower GI, Via Natural or Artificial Opening Endoscopic (ICD-10-PCS; principal; 2017-04-06)
PROC: 0DQ Gastrointestinal System, Repair (ICD-10-PCS; principal; 2017-04-06)
DX: K91.840 Postprocedural hemorrhage of a digestive system organ or structure following a digestive system procedure (principal); D62 Acute posthemorrhagic anemia; I48.91 Unspecified atrial fibrillation; G40.909 Epilepsy, unspecified, not intractable, without status epilepticus; Z79.01 Long term (current) use of anticoagulants; Z86.73 Personal history of transient ischemic attack (TIA), and cerebral infarction without residual deficits; Z95.2 Presence of prosthetic heart valve; E11.9 Type 2 diabetes mellitus without complications; M81.0 Age-related osteoporosis without current pathological fracture; D12.2 Benign neoplasm of ascending colon; R63.4 Abnormal weight loss

== ENCOUNTER → 2017-04-11 | Outpatient (CLI) | payer BC, OTHER ==
[~2017-04-11] MED LIST changes: +ALEN70TA4 PO; -ASPEC325 PO; +CALC1CAP36 PO; -CMD10 PO; -CMD75 PO; -DLN100 PO; +FLV1 PO; -FOLATE PO; -FSM70 PO; +MULT-506 PO; +PHEN200C PO
--- NOTE | 2017-04-11 11:33 | DIAGNOSTIC IMAGING REPORT ---
CHEST 2 VIEWS ROUTINE HISTORY: 71 years-old Male CHRONIC COUGH chronic cough. Initial exam. COMPARISON: Chest radiograph 11/15/2010 TECHNIQUE: PA and lateral views of the chest FINDINGS: Cardiac silhouette is and 03/26/2016 severely enlarged, stable from most recent comparison. Prior median sternotomy with aortic valvular replacement. There is atherosclerosis of the aorta. Pulmonary vascular congestion without overt pulmonary edema. Chronic interstitial coarsening. No pneumothorax, pleural effusion or focal airspace consolidation. Remote right-sided rib fractures are again seen. Multilevel degenerative changes of the spine are noted. IMPRESSION: 1. Cardiomegaly and pulmonary vascular congestion without overt pulmonary edema. 2. Chronic interstitial coarsening without lobar airspace consolidation to suggest pneumonia. The above report was generated using voice recognition software. It may contain grammatical, syntax or spelling errors. Electronically signed by: Kiran Lombardi M.D. 04/11/2017 11:32 AM Dictated Date/Time: 04/11/2017 11:28 AM
[2017-04-11 12:26] LABS: BASO % 0.8 %; BASO ABS # 0.04 K/uL (0-0.2); EOS % 3.1 %; HEMATOCRIT 37.5 % (42-52); IG% 0.2 %; LYMPH % 10.5 %; LYMPH ABS # 0.54 K/uL (1.2-3.4); MEAN CELL VOLUME 110.3 fL (80-100); MEAN CORPUSCULAR HEMOGLOBIN 36.2 pg (25-34); MEAN CORPUSCULAR HGB CONC 32.8 g/dl (32-36); MEAN PLATELET VOLUME 10.8 fL (7.4-10.4); MONO % 12.2 %; NEUT % 73.2 %; PLATELET COUNT 262 K/uL (130-400); WHITE BLOOD COUNT 5.16 K/uL (4.8-10.8)
[2017-04-11 12:58] LABS: COMPLETE YES
== END | disposition home or self-care (01) ==
LOC: C.RADPV 10:55
PROVIDERS: ATTEND Family Medicine
DX: R05 Cough (principal); I51.7 Cardiomegaly; R91.8 Other nonspecific abnormal finding of lung field

== ENCOUNTER → 2017-04-12 | Outpatient (CLI) | payer BC, OTHER | END | disposition home or self-care (01) | LOC: C.LABPVFM 17:37 | PROVIDERS: ATTEND Family Medicine | DX: R05 Cough (principal) ==